=== PATIENT | female | born 2000 | race Caucasian/White ===

== ENCOUNTER 2025-07-22 09:02 | Outpatient (OUT) | payer OTHER, SELFPAY ==
--- OUTSIDE RECORDS SUMMARY | 2025-07-21 14:00 | XMS_ITS | Encounter Summary ---
Author Organization [facility] Address [address] [facility] [place] [address] Care Team Providers Care Greenhouse Technician Name Role Phone Elva Traore MD Unavailable [phone] Encounter Details DateTypeDepartmentCare Team (Latest Contact Info)Uifzilesbmh76/30/2025 2:00 PM EDTAncillary Procedure [facility]BGYN [address] [place] [address] [place] [address] Missed menses; Positive urine test ([facility]) Social History Tobacco UseTypesPacks/DayYears UsedDateSmoking Tobacco: Never Assessed CommentsUnknownSex and Gender InformationValueDate RecordedSex Assigned at Not on fileLegal HrfLsyqto45/15/2023 8:05 PM EDTGender IdentityNot on fileSexual OrientationNot on filedocumented as of this encounter Plan of Treatment Not on file documented as of this encounter Procedures Procedure NamePriorityDate/TimeAssociated DiagnosisCommentsUS OB TRANSVAGINAL Wytyyfs6807/21/2025 2:23 PM EDT Missed menses Positive urine test ([facility]) documented in this encounter Results * [...] not confirm viability. Correlate with hCG findings, JUKEBOX OPERATOR consultation at this time. TRANSCRIBED BY: ? [...] Diagnoses Diagnosis Missed menses Positive urine test ([facility]) documented in this encounter Care Teams Team MemberRelationshipSpecialtyStart DateEnd Date Elva Traore MD [address] [place] [address] PCP - External PCPFamily Medicine03/01/23documented as of this encounter
--- OUTSIDE RECORDS SUMMARY | 2025-07-21 14:30 | XMS_ITS | Encounter Summary ---
Author Organization [facility] Address [address] [facility] [place] [address] Care Team Providers Care Cage Loader Name Role Phone Elva Traore MD Unavailable [phone] Reason for Visit * ReasonCommentsmissed Encounter Details DateTypeDepartmentCare Team (Latest Contact Info)Ayjffumutmy92/30/2025 2:30 PM EDTOffice Visit [facility]BGYN [address] [facility] [place] [address] Dayanara Greer, TRI [address] [facility] [place] [address] Missed menses; Missed ([facility] Social History Tobacco UseTypesPacks/DayYears UsedDateSmoking Tobacco: Never Assessed CommentsUnknownSex and Gender InformationValueDate RecordedSex Assigned at Not on fileLegal OwuTdkkcy15/15/2023 8:05 PM EDTGender IdentityNot on fileSexual OrientationNot [...] not confirm viability. Correlate with hCG findings, FIBERLINE SUPERVISOR consultation at this time. TRANSCRIBED BY: ? [...] Stephen Shipman MD Authorizing ProviderResult TypeResult StatusCorey [facility] OB US PROCEDURES Final Result documented in this encounter Visit Diagnoses Diagnosis Missed menses Positive urine test ([facility]) Missed menses Missed ([facility]) Missed documented in this encounter Care Teams Team MemberRelationshipSpecialtyStart DateEnd Elva Traore MD [address] [place] [address] PCP - External PCPFamily Medicine03/01/23documented as of this encounter
--- OUTSIDE RECORDS SUMMARY | 2025-07-22 09:08 | XMS_ITS | Clinical Summary ---
Author Organization [employer] [facility] tem Address [id number] [address] [place] [address] Care Team Providers Care Business Intern Name Role Phone Luzmaria Elizondo MD Primary Care Provider [phone] Allergies No known active allergies Medications MedicationSigDispense QuantityRefillsLast FilledStart DateEnd DateStatus levonorgestreL-ethinyl estrad ([place]) 0.15 mg-30 mcg (91) per tablet Indications:Encounter for initial prescription of contraceptive pillsTake 1 tablet by mouth in the morning. 91 tablet ctive Active Problems ProblemNoted DateDiagnosed DateHydronephrosis with ureteropelvic junction (UPJ) qlmcdcujspp15/11/2022 Resolved Problems ProblemNoted DateDiagnosed DateResolved DatePain during labor05/09/2023 06/25/20233588Zlmhgrganfhjkku48/04/202306/11/20239962Ylwvlwzbjwp67/04/202306/11/2023 Renal calculus, right/ Overview (06/26/2022): 04/02/22: Right 5 x 5 mm uvj stone. URS 07/02/22:: Litho link demonstrating volume 1.22, other parameters normal Fmlfhwuyxqq79/11/202210/ain during labor/09/2022Intrauterine yzyvtibej31uspected COVID-19 virus rzwzwavtf48/04/2020 11/07/2021cute URI1/hest pain Encounters DateTypeDepartmentCare BngzMdhdmrusnxf61/08/2025Orders Only [facility] Obstetrics/Gynecology [address] [facility] [address] [place] [address] Wendie Aguilar RN 04/28/2025Telephone [facility] Obstetrics/Gynecology [address] [facility] [address] [place] [address] Wendie Aguilar, DILCIA from Last 3 Months Immunizations ImmunizationAdministration DatesNext DueRho (D) Immune Diuztdfc62/19/2023, 02/24/2023,01/14/2022,11/07/2021Tdap02/24/2023,11/07/2021 Family History Medical HistoryRelationNameCommentsNo Known ProblemsBrotherNo Known Problems FatherNo Known ProblemsMotherNo Known ProblemsSisterRelationNameStatusComments BrotherAliveFatherAliveMotherAliveSisterAlive Social History Tobacco UseTypesPacks/DayYears UsedDateSmoking Tobacco: NeverSmokeless Tobacco: Never Tobacco Cessation:Counseling Given: Not Answered Alcohol UseStandard Drinks/WeekCommentsNo0 (1 standard drink = 0.6 oz pure alcohol)Social Connection and Isolation PanelAnswerDate RecordedIn a typical week, how many times do you talk on the phone with family, friends, or neighbors?Twice a week11/23/2022How often do you get together with friends or relatives?Twice a week11/23/2022How often do you attend holiness or bahai services?Never11/23/2022o you belong to any clubs or organizations such as holiness groups, unions, fraternal or athletic groups, or school groups?No 11/23/2022How often do you attend meetings of the clubs or organizations you belong to?Never11/23/2022re you , , , , never , or living with a partner?Living with ywpztfh1611/23/2022UDIT-CAnswerDate RecordedQ1: How often do you have a drink containing alcohol?Never11/23/2022Q2: How many drinks containing alcohol do you have on a typical day when you are drinking?Patient does not drink11/23/2022Q3: How often do you have six or more drinks on one occasion?Never11/23/2022Overall Financial Resource Strain (CARDIA) AnswerDate RecordedHow hard is it for you to pay for the very basics like food, housing, medical care, and heating?Not hard at all11/23/2022HQ-2AnswerDate RecordedTotal Rwixs958[facility] [place] of Occupational Health - Occupational Stress QuestionnaireAnswerDate RecordedDo you feel stress - tense, restless, nervous, or anxious, or unable to sleep at night because yourmind is troubled all the time - these days?Only a dbfgfg6011/23/2022Exercise Vital Sign AnswerDate RecordedOn average, how many days per week do you engage in moderate to strenuous exercise (like a brisk walk)?3 days11/23/2022On average, how many minutes do you engage in exercise at this level?20 min11/23/2022RAPARE - TransportationAnswerDate RecordedIn the past 12 months, has lack of transportation kept you from medical appointments or from getting medications?No 11/23/2022In the past 12 months, has lack of transportation kept you from meetings, work, or from getting things needed for daily living?No11/23/2022 Housing InstabilityAnswerDate RecordedAre you worried or concerned that in the next two months you may not have stable housing that you own, rent or stay in as a part of a household?No11/23/2022hildcareAnswerDate RecordedDo problems getting child care associate teacher make it difficult for you to work or study?No11/23/2022 EmploymentAnswerDate RecordedDo you need help finding a local career center and/or a training program?No11/23/2022Hunger ScreeningAnswerDate RecordedWithin the past 12 months we worried whether our food would run out before we got money to buy more.Never True06/25/2023Within the past 12 months the food we bought just didn't last and we didn't have money to get more.Never True06/25/2023 Purpose - LifeAnswerDate RecordedI have a purpose and direction in my life. Strongly Agree11/23/2022CommentsNoSex and Gender InformationValueDate RecordedSex Assigned at BirthNot on fileLegal TsyIevrtp50/06/2015 11:54 AM EDT Gender IdentityNot on fileSexual OrientationNot on file Last Filed Vital Signs Vital SignReadingTime TakenCommentsBlood Lsdfwtki935/78002/23/2024 9:01 AM EDT Ivzsw9767 2:54 PM LZNWrldiueolaj83.5 ??C (97.7 ??F)05/10/2023 2:41 PM EDTRespiratory Vbfd803005/10/2023 2:41 PM EDTOxygen Nwvzmsvqdt71%11/24/2022 8:34 AM ESTInhaled Oxygen Concentration--Aikjii38.5 kg (126 lb 12.8 oz)02/23/2024 9:01 AM WZPJoriqg691.5 cm (5' 2 )02/23/2024 9:01 AM EDTBody Mass Index23.19 02/23/2024 9:01 AM EDT Plan of Treatment DateTypeDepartmentCare Team (Latest Contact Info)Lgfqoyqwelu56/06/2026 1:50 PM ESTOffice Visit [facility] Obstetrics/Gynecology [address] [place] [address] [place] [address] Nilo Call MD [address] [place] [address], [address] [place] [address] Health MaintenanceDue DateLast DoneCommentsDepression Ilhwhzaea50/04/2024 11/23/2022dult BMI Mfrpseoua97Tobacco Gaivcfacf76/03/2025 02/23/2024ap Smear/05/2022, 05/21/2018Influenza Srxmoln9705/23/2025 06/30/2009, 10/05/2003, 08/31/2003DTaP,Tdap and Td Vaccines (10 - Td or Tdap) /01/2023, 11/07/2021, 09/05/2017, Additional history exists Medical Devices Not on file Procedures Procedure NamePriorityDate/TimeAssociated DiagnosisCommentsPAP SMEARRoutine 02/28/2022 10:24 AM EDT exam from Last 3 Months or Most Recently Relevant to Health Maintenance Results * Pap Smear (02/28/2022 10:24 AM EDT)Specimen (Source)Anatomical Location / LateralityCollection Method / VolumeCollection TimeReceived Time02/28/2022 10:24 AM EDT02/28/2022 10:24 AM EDT Narrative COPATH - 03/06/2022 2:22 PM EDT [facility] ? [address] [place] [address] ? [place] [address] ? Gynecologic Cytology Consultation ? Patient Name:LORENA GOTTI:2000 (Age: 21)Gender:FTaken:02/28/2022eported:03/06/2022hysician(s):Nilo Perez M.D. ([phone])Copy To: Rec. #:[id number]: #[id number] Final Cytologic Interpretation ThinPrep Pap Test (Cervical): Satisfactory for evaluation. A transformation zone component is present. NEGATIVE FOR INTRAEPITHELIAL LESION OR MALIGNANCY. ?? [facility] [place]03/06/2022 Interpretation performed at [facility], [address] [place] [address], License number: [id number]. Electronically Signed Out By ?HALEY Almeida(ASCP) Date of Last Menstrual Period: ? (None Given) Other Clinical Conditions: Post Z39.2 Post Source of Specimen ??ThinPrep Pap Test (Cervical) ? Thin Prep Pap (COMPUTING TUTOR) Fee Code(s): ?? G0145 Authorizing ProviderResult TypeResult StatusAlexis Patricia Perez MD PATHOLOGY/CYTOLOGY ORDERABLESFinal ResultPerforming OrganizationAddress City/State/ZIP CodePhone Number COPATH from Last 3 Months or Most Recently Relevant to Health Maintenance Insurance [address] [place] [address] Advance Directives * Full Code (Latest Code Status on File) Date ActivatedDate InactivatedComments05/09/2023 8:49 AM05/10/2023 6:36 PM * Full Code Date ActivatedDate InactivatedComments11/23/2022 10:14 AM11/24/2022 5:20 PM * Full Code Date ActivatedDate InactivatedComments04/01/2022 11:09 PM04/02/2022 4:45 PM * Full Code Date ActivatedDate InactivatedComments01/13/2022 7:59 AM01/15/2022 8:16 PM Care Teams Team MemberRelationshipSpecialtyStart DateEnd Date Luzmaria Elizondo MD [address] [place] [address] PCP - GeneralFamily Medicine01/23/21
--- OUTSIDE RECORDS SUMMARY | 2025-07-22 09:09 | XMS_ITS | Patient Health Record ---
Author Organization [facility] in [place] Address [address] [place] [address] Support Name Relationship Address Phone Lorena Gotti Guarantor Unknown Reason For Referral No Information Medications Medication SIG (Take, Route, Frequency, Duration) Notes Start Date End Date Status Sprintec 28 0.25-35 MG-MCG TAKE 1 TABLET BY MOUTH DAILY FOR 28 DAYS; Duration: 84 Active Immunizations Vaccine Route Administration Date Status Comme nts DTaP Unknown 1998 Pending 1998 DTaP Unknown 1998 Pending 1998 DTaP Unknown 02/05/1999 Pending 05 Feb 1999 DTaP Unknown 10/24/1999 Pending 24 Oct 1999 DTaP Unknown 11/18/2003 Pending 18 Nov 2003 Flu, (67220) -historic- Split, Prsrvtve Free, for Intradermal use Intramuscular 06/30/2009 Pending [id number] 03:23P M Hep B, Adult, 3 Dose Unknown Pending 15ma 1998 Hep B, Adult, 3 Dose Unknown 1998 Pending 02 A ug 1997 Hep B, Adult, 3 Dose Unknown 1998 Pending 09 D ec 1997 HIB, 4 dose schedule Unknown 1998 Pending 09 D ec 1997 HIB, 4 dose schedule Unknown 1998 Pending 15 M ar 1998 HIB, 4 dose schedule Unknown 02/05/1999 Pending 17 M ay 1998 HIB, 4 dose schedule Unknown 10/24/1999 Pending 02 F eb 1999 HPV (Gardasil) Intramuscular 06/30/2009 Pending [id number] 09 03:25PM HPV (Gardasil) Intramuscular 08/30/2009 Pending 62Smk06 09 09:18AM HPV (Gardasil) Intramuscular 12/29/2009 Pending [id number] 10 09:30AM Meningococcal (Menactra) Intramuscular 03/05/2011 Pending 03Wbn1621 03:36PM MMR Unknown 04/26/1999 Pending 26 Apr 1999 MMR Unknown 11/18/2003 Pending 18 Nov 2003 Polio Virus, IPV Unknown 1998 Pending Aug 22 998 Polio Virus, IPV Unknown 1998 Pending Nov 20 999 Polio Virus, IPV Unknown 04/26/1999 Pending Apr 22 999 Polio Virus, IPV Unknown 11/18/2003 Pending Oct 2 004 Tdap Intramuscular 05/28/2011 Pending [id number] 0 9:40AM Varicella Unknown 04/26/1999 Pending 26 Apr 1999 Plan Of Treatment No Information
--- OUTSIDE RECORDS SUMMARY | 2025-07-22 09:09 | XMS_ITS | Clinical Summary ---
Author Organization [facility] Address [address] [place] [address] Care Team Providers Care Molding Associate Name Role Phone Elva Traore MD Unavailable [phone] Allergies No known active allergies Medications MedicationSigDispense QuantityRefillsLast FilledStart DateEnd DateStatus albuterol HFA 90 mcg/act inhaler every 4 (four) hoursActive Encounters DateTypeDepartmentCare GynwDkzcxgvofry88/30/2025 2:30 PM EDTOffice Visit [facility] [address] [place] [address] [place] [address] Dayanara Greer NP Missed menses; Missed ([facility])07/21/2025 2:00 PM EDTAncillary Procedure [facility] [address] [place] [address] [place] [address] Missed menses; Positive urine test ([facility])07/21/2025Telephone [facility] [address] [place] [address] [place] [address] Sydni Zhang MA from Last 3 Months Social History Tobacco UseTypesPacks/DayYears UsedDateSmoking Tobacco: Never Assessed CommentsUnknownSex and Gender InformationValueDate RecordedSex Assigned at Not on fileLegal FomVnyuaf66/15/2023 8:05 PM EDTGender IdentityNot on fileSexual OrientationNot on file Last Filed Vital Signs Vital SignReadingTime TakenCommentsBlood Khmghevg679/7011 12:00 PM EST Pulse--Temperature--Respiratory Rate--Oxygen Saturation--Inhaled Oxygen Concentration--Srjegj30.5 kg (140 lb)08/19/2018 12:00 PM FFQOmrufv999.6 cm (5' 4 )08/19/2018 12:00 PM ESTBody Mass Index24.03110/19/2017 12:00 PM EST Plan of Treatment Not on file Procedures Procedure NamePriorityDate/TimeAssociated DiagnosisCommentsUS OB TRANSVAGINAL Ckxqtra3107/21/2025 2:23 PM EDT Missed menses Positive urine test ([facility]) from Last 3 Months Results * US OB transvaginal (07/21/2025 2:23 PM EDT)Anatomical RegionLateralityModality BodyUltrasoundSpecimen (Source)Anatomical Location / LateralityCollection Method / VolumeCollection TimeReceived Time07/21/2025 2:53 PM EDT Impressions 07/21/2025 3:22 PM EDT Single intrauterine gestational sac with pole, age of which suggests an 8 week and 0 day gestational age, however absence of cardiac activity does not confirm viability. Correlate with hCG findings, TRACK HELPER consultation at this time. TRANSCRIBED BY: ? [...] Shipman MD Authorizing ProviderResult TypeResult StatusCorey Bari MACEMG OB US PROCEDURES Final Result from Last 3 Months Insurance Care Teams Team MemberRelationshipSpecialtyStart DateEnd Date Elva Traore MD [address] [place] [phone] PCP - External PCPFamily [facility]03/01/23
--- OUTSIDE RECORDS SUMMARY | 2025-07-22 09:09 | XMS_ITS | Patient Health Record ---
Author Organization [facility] vices Address [address], [place] [id number] Support Name Relationship Address Phone Shen Rosangela Emergency Contact [address] [place] [address] Lorena Gotti Guarantor Unknown Allergies No Known Allergies Reason For Referral No Information Medications Medication SIG (Take, Route, Frequency, Duration) Notes Start Date End Date Status Amoxicillin 500 MG 1 tablet Orally Three times a day; Duration: 5 day(s) 12/26/2022UnknownAmoxicillin-Pot Clavulanate 500-125 MG1 tablet Orally every 8 hrs; Duration: 7 day(s)01/03/2023ctive Social History Tobacco Use: Social History Observation Description Date Details (start date - stop date) Never Smoker NA - NA Sex Assigned At : Social History Observation Description Sex Assigned At Female Household Question Answer Notes Number of adults in household: 1 Number of children in household:4Tobacco Use/Smoking Question Answer Notes Tobacco use: nonsmoker Problems Problem Type SNOMED Code ICD Code Onset Dates Problem Status W/U Status Risk Notes Problem Irregular periods (15762933) Irregular pe riods (N92.6) ActiveconfirmedComment:Strongly advised to take a test , she does have history of unprotected sexual intercourse,ProblemEncounter for supervision of low-risk (Z34.90)Activeconfirmed Comment:1. Dated by 6wk US 2. labs ordered today. 3. Nausea/vomiting: bonjesta, added reglan PRN 4. Aneuploidy screening options reviewed. Opted for cell free DNA, order next visit 5. Declines COVID vaccination. 6. RTC 4wks routine .,Description:Supervision of low-risk ProblemDepression screening (937462451)Screening for depression (Z13.31)Active confirmedDescription:Depression screenProblemContraception care management (313000248)Contraception management (Z30.9)ActiveconfirmedProblemUpper respiratory infection (87302153)URI (upper respiratory infection) (J06.9)Active confirmed Comment:Discussed with patient at length No signs of bacterial infection Counselled on lifestyle modifications including diet and exercise. Also, discussed with patient to increase hydration Again, encourage to get vaccinated. PVU., ProblemBacterial vaginosis (disorder) (276479359)BV (bacterial vaginosis) (N76.0)ActiveconfirmedProblemWell female adult (710775263)Well woman exam (Z01.419)ActiveconfirmedComment:Discussed with patient at length - she is ready to get . She understands the risks without being on any control and not using any condoms, and not considering any other contraception. Currently, she has only one male partner. Also, denied breast examination today.,ProblemBacterial vaginosis (473893727)Bacterial vaginosis (N76.0)Active confirmed Comment:Discussed with patient - it seems to be resolving already. We will wait to see how things are in next few days. Also, she was strongly adviced to check for status - she will check this once she getss home. It does not sound like cervicitis - but she does understand the limitation of this assessment without any physical examination., ProblemSupervision of low-risk (Z34.90)Activeconfirmed Comment:1. Dated by 6wk US 2. Rh neg, Hgb 13.9 3. Nausea/vomiting: Resolved. No longer taking medication 4. NIPS normal. Male infant. Declines CF/SMA testing 5. Declines COVID vaccination. Considering flu vaccine. 6. RTC 4wks routine . Referral sent for anatomic survey. 7. Moved to [place] and will be transferring care there., ProblemAcute sinusitis (46006897)Acute sinusitis (J01.90)Activeconfirmed Comment:see patient message,ProblemNausea and vomiting in (1200070016) Nausea and vomiting in (O21.9)ActiveconfirmedProblemIrregular menstruation (90484428)Menstrual abnormality (N92.6)ActiveconfirmedComment:She has had extensive work up with [employer] - No concern. We will continue to monitor., ProblemEarly stage of (finding) (671992391) at early stage (Z34.90)ActiveconfirmedComment:1. RTC for ob intake appt after US.,Problem Headache (65175937)Headache (R51.9)ActiveconfirmedComment:Discussed with patient at length - patient tried only 50 mg for the last episode - which did not help a lot. Discuss with patient to take another one 2 hours later if needed. Patient voices understanding. Continue to keep a headache diary. PVU. No red flag concerns.,ProblemVomiting of (59913584)Nausea/vomiting in (O21.9)ActiveconfirmedProblemCandidiasis (50078993)Yeast infection (B37.9)Active confirmedProblemHistory of infectious disease (026301905)History of chlamydia (Z86.19)ActiveconfirmedComment:Negative STD panel including negative HIV screening - discussed with patient in person. PVU.,ProblemHistory and physical examination, sports participation (185130709)Sports physical (Z02.5)Active confirmed Comment:-pt UTD with immunizations, no known medical condition or on prescribed medications -PE is with in normal limits -cw healthy diet and physical exercises -f/u as needed, ProblemLumbar pain (615017394)Lumbar pain (M54.50)Activeconfirmed Comment:Likely strain that appears resolving. CT reported negative. Discuss with strainer mill operator at [facility] to obtain exercises or stretches to begin., Plan Of Treatment No Information Insurance Providers Payer Name Payer Address Payer Phone Subscriber Number Group Number Insured Name Patient Relationship to Insured Coverage Start Date Coverage End Date [facility] [address] [place] [address] [phone] [id number] Lorena Gotti Self - patient is the insured 3 Medicaid [facility] after [address]them[address] [place], [place] [id number], Shylee Self - patient is the [id number] 2022 Medical (General) History Medical History History ICD Code Bacterial vaginosis, Contraception managementCOVID-19 vaccination declinedHeadacheLumbar pain Supervision of low-risk pregnancySurgical History Surgery Date(Month/Year)
--- OUTSIDE RECORDS SUMMARY | 2025-07-22 09:09 | XMS_ITS | Encounter Summary ---
Author Organization [facility] Address [address] [place] [address] Care Team Providers Care Night Time Babysitter Name Role Phone Elva Traore MD Unavailable [phone] Encounter Details DateTypeDepartmentCare Team (Latest Contact Info)Eleatxdtqfx09/30/2025Telephone [facility] [address] [place] [address] [place] [address] Sydni Zhang MA Social History Tobacco UseTypesPacks/DayYears UsedDateSmoking Tobacco: Never Assessed CommentsUnknownSex and Gender InformationValueDate RecordedSex Assigned at Not on fileLegal RnhGjlwoz96/15/2023 8:05 PM EDTGender IdentityNot on fileSexual OrientationNot on filedocumented as of this encounter Miscellaneous Notes * Telephone Encounter - Sydni Zhang MA - 07/21/2025 2:52 PM EDT Per joann order serial hCG's to have drawn weekly until level is below 5 documented in this encounter Plan of Treatment NameTypePriorityAssociated DiagnosesOrder SchedulehCG, quantitative, LabRoutine Positive urine test ([facility]) Expected: 07/21/2025 (Approximate), Expires: 01/19/2026documented as of this encounter Visit Diagnoses Diagnosis Positive urine test ([facility]) documented in this encounter Care Teams Team MemberRelationshipSpecialtyStart DateEnd Date Elva Traore MD [address] [place] [phone] PCP - External PCPFamily Medicine03/01/23documented as of this encounter
== END 2025-07-22 09:03 | disposition home or self-care (01) ==
LOC: PST 09:04
PROVIDERS: Visit Provider Obstetrics & Gynecology
DX: Z01.812 Encounter for preprocedural laboratory examination (principal); O02.1 Missed abortion
CPT/HCPCS: 36415; 86850; 86900; 86901

== ENCOUNTER 2025-07-25 06:49 | Day surgery (SDC) | payer OTHER, SELFPAY ==
--- OUTSIDE RECORDS SUMMARY | 2025-07-21 13:00 | XMS_ITS | Encounter Summary ---
Author Organization [facility] Address [address] [facility] [place] [address] Care Team Providers Care Vegetable Farmer Name Role Phone Elva Traore MD Unavailable [phone] Encounter Details DateTypeDepartmentCare Team (Latest Contact Info)Fywclgvnyjb65/30/2025 2:00 PM EDTAncillary Procedure [facility]i OBGYN [address] [place] [address] [place] [address] Missed menses; Positive urine test ([facility]) Social History Tobacco UseTypesPacks/DayYears UsedDateSmoking Tobacco: Never Assessed CommentsUnknownSex and Gender InformationValueDate RecordedSex Assigned at Not on fileLegal YhdIavekc88/15/2023 8:05 PM EDTGender IdentityNot on fileSexual OrientationNot on filedocumented as of this encounter Plan of Treatment Not on file documented as of this encounter Procedures Procedure NamePriorityDate/TimeAssociated DiagnosisCommentsUS OB TRANSVAGINAL Umzmjeg1107/21/2025 2:23 PM EDT Missed menses Positive urine test ([facility]) documented in this encounter Results * US OB transvaginal (07/21/2025 2:23 PM EDT)Anatomical RegionLateralityModality BodyUltrasoundSpecimen (Source)Anatomical Location / LateralityCollection Method / VolumeCollection TimeReceived Time07/21/2025 2:53 PM EDT Impressions 07/21/2025 3:22 PM EDT Single intrauterine gestational sac with pole, age of which suggests an 8 week and 0 day gestational age, however absence of cardiac activity does not confirm viability. Correlate with hCG findings, ENGINEER DESIGN AND CONSTRUCTION consultation at this time. TRANSCRIBED BY: ? [...] Shipman MD Authorizing ProviderResult TypeResult StatusCorey Bari DOIMG OB US PROCEDURES Final Result documented in this encounter Visit Diagnoses Diagnosis Missed menses Positive urine test ([facility]) documented in this encounter Care Teams Team MemberRelationshipSpecialtyStart DateEnd Date Elva Traore MD [address] [place] [address] PCP - External PCPFamily Medicine03/01/23documented as of this encounter
--- OUTSIDE RECORDS SUMMARY | 2025-07-21 13:30 | XMS_ITS | Encounter Summary ---
Author Organization [facility] Address [address] [facility] [place] [address] Care Team Providers Care Heavy Media Operator Name Role Phone Elva Traore MD Unavailable [phone] Reason for Visit * ReasonCommentsmissed Encounter Details DateTypeDepartmentCare Team (Latest Contact Info)Jmezjqpfoze95/30/2025 2:30 PM EDTOffice Visit [facility]BGYN [address] [facility] [place] [address] Dayanara Greer, TRI [address] [facility] [place] [address] Missed menses; Missed ([facility]) Social History Tobacco UseTypesPacks/DayYears UsedDateSmoking Tobacco: Never Assessed CommentsUnknownSex and Gender InformationValueDate RecordedSex Assigned at Not on fileLegal HuoStpxmo84/15/2023 8:05 PM EDTGender IdentityNot on fileSexual OrientationNot on filedocumented as of this encounter Plan of Treatment Not on file documented as of this encounter Results * US OB transvaginal (07/21/2025 2:23 PM EDT)Anatomical RegionLateralityModality BodyUltrasoundSpecimen (Source)Anatomical Location / LateralityCollection Method / VolumeCollection TimeReceived Time07/21/2025 2:53 PM EDT Impressions 07/21/2025 3:22 PM EDT Single intrauterine gestational sac with pole, age of which suggests an 8 week and 0 day gestational age, however absence of cardiac activity does not confirm viability. Correlate with hCG findings, CAMP DIRECTOR consultation at this time. TRANSCRIBED BY: ? [...] Stephen Shipman MD Authorizing ProviderResult TypeResult StatusCorey [facility] OB US PROCEDURES Final Result documented in this encounter Visit Diagnoses Diagnosis Missed menses Positive urine test ([facility]) Missed menses Missed ([facility]) Missed documented in this encounter Care Teams Team MemberRelationshipSpecialtyStart DateEnd Elva Traore MD [address] [place] [address] PCP - External PCPFamily Medicine03/01/23documented as of this encounter
[2025-07-22 09:40] VITALS: BP 117/70; PULSE 62; TEMP 35.6; O2SAT 95; BMI 24.0
--- OUTSIDE RECORDS SUMMARY | 2025-07-25 06:52 | XMS_ITS | Encounter Summary ---
Author Organization [facility] Address [address] [place] [address] Care Team Providers Care Measurement Superintendent Name Role Phone Elva Traore MD Unavailable [phone] Encounter Details DateTypeDepartmentCare Team (Latest Contact Info)Nlphryfzhrv38/31/2025linisync Result Encounter [facility] External Department Unsolicited Eusebio Candelaria, DO [address] [place] [address] Social History Tobacco UseTypesPacks/DayYears UsedDateSmoking Tobacco: Never Assessed CommentsUnknownSex and Gender InformationValueDate RecordedSex Assigned at Not on fileLegal SrqDdrjuc36/15/2023 8:05 PM EDTGender IdentityNot on fileSexual OrientationNot on filedocumented as of this encounter Plan of Treatment Not on file documented as of this encounter Procedures Procedure NamePriorityDate/TimeAssociated DiagnosisCommentsALL TYPE AND SCREEN Oupdufn7907/22/2025 9:51 AM EDT documented in this encounter Results * ALL TYPE AND SCREEN (07/22/2025 9:51 AM EDT)ComponentValueRef RangeTest Method Analysis TimePerformed AtPathologist SignatureBLOOD TYPEA NegativeTBHANTIBODY SCREENNEGATIVETBHSpecimen (Source)Anatomical Location / LateralityCollection Method / VolumeCollection TimeReceived Time07/22/2025 9:51 AM EDT1 9:52 AM EDT Narrative [facility] - 07/22/2025 10:47 AM EDT [facility] , ?? Authorizing ProviderResult TypeResult StatusCorey Bari DOCLINISYNCFinal Result Performing OrganizationAddressCity/State/ZIP CodePhone Number [facility] documented in this encounter Visit Diagnoses Not on filedocumented in this encounter Care Teams Team MemberRelationshipSpecialtyStart DateEnd Date Elva Traore MD [address] [place] [phone] PCP - External PCPFamily Medicine03/01/23documented as of this encounter
--- OUTSIDE RECORDS SUMMARY | 2025-07-25 06:52 | XMS_ITS | Clinical Summary ---
Author Organization [facility] tem Address [id number] [address] [place] [address] Care Team Providers Care Partition Notcher Name Role Phone Luzmaria Elizondo MD Primary Care Provider [phone] Allergies No known active allergies Medications MedicationSigDispense QuantityRefillsLast FilledStart DateEnd DateStatus levonorgestreL-ethinyl estrad ([place]) 0.15 mg-30 mcg (91) per tablet Indications:Encounter for initial prescription of contraceptive pillsTake 1 tablet by mouth in the morning. 91 tablet ctive Active Problems ProblemNoted DateDiagnosed DateHydronephrosis with ureteropelvic junction (UPJ) qlkivprqeqt15/11/2022 Resolved Problems ProblemNoted DateDiagnosed DateResolved DatePain during labor05/09/2023 06/25/20239984Svpplbhuupnnqka32/04/202306/11/20236860Mxnulsdjmku31/04/202306/11/2023 Renal calculus, right/ Overview (06/26/2022): 04/02/22: Right 5 x 5 mm uvj stone. URS 07/02/22:: Litho link demonstrating volume 1.22, other parameters normal Wxtbbmmlxkt20/11/202210/ain during labor/09/2022Intrauterine jrskkvvep75uspected COVID-19 virus oaxtwovgb57/04/2020 11/07/2021cute URI1/hest pain Encounters DateTypeDepartmentCare NgtlPjgsyrwtock96/08/2025Orders Only [facility] Obstetrics/Gynecology [address] [place] [phone] Wendie Aguilar RN 04/28/2025Telephone [facility] Obstetrics/Gynecology [address] [place] [phone] Wendie Aguilar, DILCIA from Last 3 Months Immunizations ImmunizationAdministration DatesNext DueRho (D) Immune Snuojjon99/19/2023, 02/24/2023,01/14/2022,11/07/2021Tdap02/24/2023,11/07/2021 Family History Medical HistoryRelationNameCommentsNo Known ProblemsBrotherNo [...] relatives?Twice a week11/23/2022How often do you attend scientologist or spiritism services?Never11/23/2022o you belong to any clubs or organizations such as scientologist groups, unions, fraternal or athletic groups, or school groups?No 11/23/2022How often do you attend meetings of the clubs or organizations you belong to?Never11/23/2022re you , , , , never , or living with a partner?Living with xeznmnm4911/23/2022UDIT-CAnswerDate RecordedQ1: How often do you have a [...] care, and heating?Not hard at all11/23/2022HQ-2AnswerDate RecordedTotal Vxsgr431Finlakeview hospital [place] of Occupational [facility] - Occupational Stress QuestionnaireAnswerDate RecordedDo you feel stress - tense, restless, nervous, or anxious, or unable to sleep at night because yourmind is troubled all the time - these days?Only a azhpdc3511/23/2022Exercise Vital Sign AnswerDate RecordedOn average, how many [...] part of a household?No11/23/2022hildcareAnswerDate RecordedDo problems getting 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 work [...] InformationValueDate RecordedSex Assigned at BirthNot on fileLegal LunFycapi20/06/2015 11:54 AM EDT Gender IdentityNot on fileSexual OrientationNot on file Last Filed Vital Signs Vital SignReadingTime TakenCommentsBlood Sybszjto813/78002/23/2024 9:01 AM EDT Ugheq2402 2:54 PM XFFCquworkxntn72.5 ??C (97.7 ??F)05/10/2023 2:41 PM EDTRespiratory Fjqh726805/10/2023 2:41 PM EDTOxygen Iyphamcext22%11/24/2022 8:34 AM ESTInhaled Oxygen Concentration--Tfxqhf44.5 kg (126 lb 12.8 oz)02/23/2024 9:01 AM JNJVztdep654.5 cm (5' 2 )02/23/2024 9:01 AM EDTBody Mass Index23.19 02/23/2024 9:01 AM EDT Plan of Treatment DateTypeDepartmentCare Team (Latest Contact Info)Ngiyszkhuis02/06/2026 1:50 PM ESTOffice Visit [facility] Obstetrics/Gynecology [address] [place] [address] [place] [phone] Nilo Call MD [address] [place] [address], [address] [place] [address] Health MaintenanceDue DateLast DoneCommentsDepression Canrqikas37/04/2024 11/23/2022dult BMI Hfohfmbiy86Tobacco Tgdoxwhim41/03/2025 02/23/2024ap Smear/05/2022, 05/21/2018Influenza Bezzozm4005/23/2025 06/30/2009, 10/05/2003, 08/31/2003DTaP,Tdap and Td Vaccines (10 [...] Narrative COPATH - 03/06/2022 2:22 PM EDT [facility] ? [address] [place] [address] ? [place] [address] ? Gynecologic Cytology Consultation ? Patient Name:LORENA GOTTI:2000 (Age: 21)Gender:FTaken:02/28/2022eported:03/06/2022hysician(s):Nilo Perez M.D. ([phone])Copy To: Rec. #:[id number]: #[id number] Final Cytologic Interpretation ThinPrep Pap Test (Cervical): Satisfactory for evaluation. A transformation zone component is present. NEGATIVE FOR INTRAEPITHELIAL LESION OR MALIGNANCY. ?? [facility] [place]2022 Interpretation performed at [facility], [address] [place] [address], License number: [id number]. Electronically Signed Out By ?HALEY Almeida(ASCP) Date of Last Menstrual Period: ? (None Given) Other Clinical Conditions: Post Z39.2 Post Source of Specimen ??ThinPrep Pap Test (Cervical) ? Thin Prep Pap (SOLIDS CONTROL TECHNICIAN) Fee Code(s): ?? G0145 Authorizing ProviderResult TypeResult StatusAlexis Patricia Perez MD PATHOLOGY/CYTOLOGY ORDERABLESFinal ResultPerforming OrganizationAddress City/State/ZIP CodePhone Number COPATH from Last 3 Months or Most Recently Relevant to Health Maintenance Insurance [address] [place] [address] Advance Directives * Full Code (Latest Code Status on File) Date ActivatedDate InactivatedComments05/09/2023 8:49 AM05/10/2023 6:36 PM * Full Code Date ActivatedDate InactivatedComments11/23/2022 10:14 AM11/24/2022 5:20 PM * Full Code Date ActivatedDate InactivatedComments04/01/2022 11:09 PM04/02/2022 4:45 PM * Full Code Date ActivatedDate InactivatedComments01/13/2022 7:59 AM01/15/2022 8:16 PM Care Teams Team MemberRelationshipSpecialtyStart DateEnd Date Luzmaria Elizondo MD [address] [place] [address] PCP - GeneralFamily Medicine01/23/21
--- OUTSIDE RECORDS SUMMARY | 2025-07-25 06:53 | XMS_ITS | Encounter Summary ---
Author Organization [facility] Address [address] [place] [address] Care Team Providers Care Wine Bottle Inspector Name Role Phone Elva Traore MD Unavailable [phone] Encounter Details DateTypeDepartmentCare Team (Latest Contact Info)Vucznypngra12/30/2025Telephone [facility] [address] [place] [address] [place] [address] Sydni Zhang MA Social History Tobacco UseTypesPacks/DayYears UsedDateSmoking Tobacco: Never Assessed CommentsUnknownSex and Gender InformationValueDate RecordedSex Assigned at Not on fileLegal QyrApduoi31/15/2023 8:05 PM EDTGender IdentityNot on fileSexual OrientationNot on filedocumented as of this encounter Miscellaneous Notes * Telephone Encounter - Sydni Zhang MA - 07/21/2025 2:52 PM EDT Per joann order serial hCG's to have drawn weekly until level is below 5 documented in this encounter Plan of Treatment NameTypePriorityAssociated DiagnosesOrder SchedulehCG, quantitative, LabRoutine Positive urine test ([facility]) Expected: 07/21/2025 (Approximate), Expires: 01/19/2026documented as of this encounter Visit Diagnoses Diagnosis Positive urine test ([facility]) documented in this encounter Care Teams Team MemberRelationshipSpecialtyStart DateEnd Date Elva Traore MD [address] [place] [phone] PCP - External PCPFamily Medicine03/01/23documented as of this encounter
--- OUTSIDE RECORDS SUMMARY | 2025-07-25 06:53 | XMS_ITS | Patient Health Record ---
Author Organization [facility] vices Address [address] [facility] [place] [address] Support Name Relationship Address Phone Shen Rosangela Emergency Contact [address] [place] [address] Lorena Gotti Guarantor Unknown [phone] Allergies No Known Allergies Reason For Referral [...] W/U Status Risk Notes Problem Irregular periods (97247398) Irregular pe riods (N92.6) ActiveconfirmedComment:Strongly advised to [...] 4wks routine .,Description:Supervision of low-risk ProblemDepression screening (582701363)Screening for depression (Z13.31)Active confirmedDescription:Depression screenProblemContraception care management (132686324)Contraception management (Z30.9)ActiveconfirmedProblemUpper respiratory infection (92319016)URI (upper respiratory infection) (J06.9)Active confirmed Comment:Discussed with patient at length No signs of bacterial infection Counselled on lifestyle modifications including diet and exercise. Also, discussed with patient to increase hydration Again, encourage to get vaccinated. PVU., ProblemBacterial vaginosis (disorder) (041223811)BV (bacterial vaginosis) (N76.0)ActiveconfirmedProblemWell female adult (274284642)Well woman exam (Z01.419)ActiveconfirmedComment:Discussed with patient at length - she is ready to get . She understands the risks without being on any control and not using any condoms, and not considering any other contraception. Currently, she has only one male partner. Also, denied breast examination today.,ProblemBacterial vaginosis (906531514)Bacterial vaginosis (N76.0)Active confirmed Comment:Discussed with patient - [...] sent for anatomic survey. 7. Moved to [place] and will be transferring care there., ProblemAcute sinusitis (45286681)Acute sinusitis (J01.90)Activeconfirmed Comment:see patient message,ProblemNausea and vomiting in (9445344594) Nausea and vomiting in (O21.9)ActiveconfirmedProblemIrregular menstruation (04176994)Menstrual abnormality (N92.6)ActiveconfirmedComment:She has had extensive work up with [employer] - No concern. We will continue to monitor., ProblemEarly stage of (finding) (568435330) at early stage (Z34.90)ActiveconfirmedComment:1. RTC for ob intake appt after US.,Problem Headache (27009884)Headache (R51.9)ActiveconfirmedComment:Discussed with patient at length - patient tried only 50 mg for the last episode - which did not help a lot. Discuss with patient to take another one 2 hours later if needed. Patient voices understanding. Continue to keep a headache diary. PVU. No red flag concerns.,ProblemVomiting of (18942659)Nausea/vomiting in (O21.9)ActiveconfirmedProblemCandidiasis (66937978)Yeast infection (B37.9)Active confirmedProblemHistory of infectious disease (657325834)History of chlamydia (Z86.19)ActiveconfirmedComment:Negative STD panel including negative HIV screening - discussed with patient in person. PVU.,ProblemHistory and physical examination, sports participation (122982111)Sports physical (Z02.5)Active confirmed Comment:-pt UTD with immunizations, no known medical condition or on prescribed medications -PE is with in normal limits -cw healthy diet and physical exercises -f/u as needed, ProblemLumbar pain (279049269)Lumbar pain (M54.50)Activeconfirmed Comment:Likely strain that appears resolving. CT reported negative. Discuss with guide dog trainer at [facility] to obtain exercises or stretches to begin., Plan Of Treatment No Information Insurance Providers Payer Name Payer Address Payer Phone Subscriber Number Group Number Insured Name Patient Relationship to Insured Coverage Start Date Coverage End Date [facility] [address] [place] [address] [id number] Lorena Gotti Self - patient is the insured 3 Medicaid [facility] after Anthem[address] [place], [place] [id number], Shylee Self - patient is the [id number] 2022 Medical (General) History Medical History History ICD Code Bacterial vaginosis, Contraception managementCOVID-19 vaccination declinedHeadacheLumbar pain Supervision of low-risk pregnancySurgical History Surgery Date(Month/Year)
--- OUTSIDE RECORDS SUMMARY | 2025-07-25 06:53 | XMS_ITS | Clinical Summary ---
Author Organization [facility] Address [address] [facility] [place] [address] Care Team Providers Care Hemp Fiber Taker Off Name Role Phone Elva Traore MD Unavailable [phone] Allergies No known active allergies Medications MedicationSigDispense QuantityRefillsLast FilledStart DateEnd DateStatus albuterol HFA 90 mcg/act inhaler every 4 (four) hoursActive Encounters DateTypeDepartmentCare CtrhKlnwhoignin78/31/2025linisync Result Encounter NOMS External Department Unsolicited Eusebio Candelaria DO 07/21/2025 2:30 PM EDTOffice Visit [facility] Rosi [facility] [address] [place] [address] [place] [address] Dayanara Greer NP Missed menses; Missed ([facility])07/21/2025 2:00 PM EDTAncillary Procedure [facility] Rosi CRIS[facility]OM[facility] [address] [place] [address] [place] [address] Missed menses; Positive urine test ([facility])07/21/2025Telephone [facility] Ros[facility] CR[facility] [address] [place] [address] [place] [address] Sydni Zhang MA from Last 3 Months Social History Tobacco UseTypesPacks/DayYears UsedDateSmoking Tobacco: Never Assessed CommentsUnknownSex and Gender InformationValueDate RecordedSex Assigned at Not on fileLegal RvlGlqdjn04/15/2023 8:05 PM EDTGender IdentityNot on fileSexual OrientationNot on file Last Filed Vital Signs Vital SignReadingTime TakenCommentsBlood Ijjyozec765/7008/19/2018 12:00 PM EST Pulse--Temperature--Respiratory Rate--Oxygen Saturation--Inhaled Oxygen Concentration--Muibjx79.5 kg (140 lb)08/19/2018 12:00 PM PYIBomgfr646.6 cm (5' 4 )08/19/2018 12:00 PM ESTBody Mass Index24.03110/19/2017 12:00 PM EST Plan of Treatment Not on file Procedures Procedure NamePriorityDate/TimeAssociated DiagnosisCommentsALL TYPE AND SCREEN Dwljgob5807/22/2025 9:51 AM EDT OB IBEJNLWHBNXMQxiwqll60/30/2025 2:23 PM EDT Missed menses Positive urine test ([facility]) from Last 3 Months Results * ALL TYPE AND SCREEN (07/22/2025 9:51 AM EDT)ComponentValueRef RangeTest Method Analysis TimePerformed AtPathologist SignatureBLOOD TYPEA NegativeTBHANTIBODY SCREENNEGATIVETBHSpecimen (Source)Anatomical Location / LateralityCollection Method / VolumeCollection TimeReceived Time07/22/2025 9:51 AM EDT1 9:52 AM EDT Narrative [facility] - 07/22/2025 10:47 AM EDT [facility] , ?? Authorizing ProviderResult TypeResult StatusCorey Bari DOCLINISYNCFinal Result Performing OrganizationAddressCity/State/ZIP CodePhone Number [facility] * OB transvaginal (07/21/2025 2:23 PM EDT)Anatomical RegionLateralityModality BodyUltrasoundSpecimen (Source)Anatomical Location / LateralityCollection Method / VolumeCollection TimeReceived Time07/21/2025 2:53 PM EDT Impressions 07/21/2025 3:22 PM EDT Single intrauterine gestational sac with pole, age of which suggests an 8 week and 0 day gestational age, however absence of cardiac activity does not confirm viability. Correlate with hCG findings, BULK INTAKE WORKER consultation at this time. TRANSCRIBED BY: ? [...] Bari DOI OB US PROCEDURES Final Result from Last 3 Months Insurance Care Teams Team MemberRelationshipSpecialtyStart DateEnd Elva Traore MD [address] [place] [address] PCP - External PCPFamily Medicine03/01/23
--- OUTSIDE RECORDS SUMMARY | 2025-07-25 06:53 | XMS_ITS | Patient Health Record ---
Author Organization The [facility] [place] Address [address] [place] [address] Support Name Relationship Address Phone Lorena Gotti [...] Unknown 11/18/2003 Pending 18 Nov 2003 Flu, (48535) -historic- Split, Prsrvtve Free, for Intradermal use Intramuscular 06/30/2009 Pending [id number] 03:23P M Hep B, Adult, 3 Dose [...] eb 1999 HPV (Gardasil) Intramuscular 06/30/2009 Pending [id number] 09 03:25PM HPV (Gardasil) Intramuscular 08/30/2009 Pending [id number] 09 09:18AM HPV (Gardasil) Intramuscular 12/29/2009 Pending [id number] 10 09:30AM Meningococcal (Menactra) Intramuscular 03/05/2011 Pending [id number] 03:36PM MMR Unknown 04/26/1999 Pending 26 Apr 1999 MMR Unknown 11/18/2003 Pending 18 Nov 2003 Polio Virus, IPV Unknown 1998 Pending Aug 22 998 Polio Virus, IPV Unknown 1998 Pending Nov 20 999 Polio Virus, IPV Unknown 04/26/1999 Pending Apr 22 999 Polio Virus, IPV Unknown 11/18/2003 Pending Oct 2 004 Tdap Intramuscular 05/28/2011 Pending [id number] 0 9:40AM Varicella Unknown 04/26/1999 Pending 26 Apr 1999 Plan Of Treatment No Information
[2025-07-25 06:55] VITALS: BP 125/71; PULSE 58; TEMP 36.3; O2SAT 100; BMI 24.1
[2025-07-25 06:56] LABS: Hematocrit 39.3 % (36.0-48.0); Hemoglobin 14.1 g/dL (12.0-16.0); Immature Granulocytes Abs Auto 0.01 10^3/uL (0.00-0.03); Immature Granulocytes Pct Auto 0.2 % (0.0-0.5); Lymphocytes Absolute Auto 2.2 10^3/uL (1.2-3.8); Mean Corpuscular HGB Conc 35.9 g/dL (29.9-35.2); Mean Corpuscular Hemoglobin 34.7 pg (26.7-34.0); Mean Corpuscular Volume 96.8 fL (81.0-99.0); Platelet Count 269 10^3/uL (150-450); Red Blood Count 4.06 10^6/uL (4.20-5.40); White Blood Count 6.5 10^3/uL (4.0-11.0)
--- NOTE | 2025-07-25 07:16 | US_ITS ---
The [address] [address] Patient Name: BEER LOZANO MRN: [id number] date: 2000 Sex: F Assigned Patient Location: [facility] Current Patient Location: [facility] Accession/Order Number: [id number] Exam Date: 07/25/2025 07:08 Report Date: 07/25/2025 08:03 At the request of: GALLITO HENRIQUEZ DO Procedure: US OB <= 14 weeks fetus FIRST TRIMESTER OB ULTRASOUND CLINICAL DATA: Confirmation of demise before D&C. COMPARISON: None The urinary bladder is empty. A gestational sac is visualized within the uterus. A pole is present with crown-rump length measurement of 1.3 cm. This would correlate with an ultrasound age of 7 weeks 3 days. Based on the mean gestational sac size of 3.2 cm, this would correlate with an ultrasound age of 8 weeks 1 day. No cardiac activity was documented confirming demise. US/US OB <= 14 weeks fetus IMPRESSION: NONVIABLE INTRAUTERINE . Impression dictated by: Sherry Jonas M.D. 07/25/2025 8:03 AM Dictation Location: [place] [address] Electronically authenticated by: [id number] Y Date: 07/25/2025 08:03
--- NOTE | 2025-07-25 09:03 | PM.ONB ---
Brief Operative Note Date of procedure: 07/25/25 Pre-op diagnosis general: missed , first trimester Post-op diagnosis: same as pre-op Procedure: NAME OF PROCEDURE: [D&C suction ] PROCEDURE: The patient was taken back to the OR where she was given general anesthesia without difficulty. She was then placed in dorsal lithotomy position, prepped and draped in the normal sterile fashion. A weighted speculum was placed in the patient's vagina and the anterior lip of the cervix was identified and grasped with a single-tooth tenaculum. The patient was then gently dilated using Hegar dilators after we had sounded roughly to 12 cm. The suction curette was then tested. The suction curette was then placed in the patient's uterus and products of conception were removed using an 10-Bolivian suction curette. ?Excellent hemostasis was noted. The patient tolerated the procedure well. Sponge, lap, and needle counts were correct x 2. All instruments were then removed from the patient's vagina. The patient was taken to the Recovery Room in stable condition. ?? Anesthesia: MAC Surgeon: Eusebio Candelaria Estimated blood loss (mL): 5 Pathology: other (poc) Condition: stable Disposition: PACU Urinary Catheter Management Urinary Catheter Management Urethral: Cath placed during this visit: no
[2025-07-25 09:06] VITALS: BP 95/64; PULSE 73; O2SAT 95
[2025-07-25] MEDS: RHO(D) IMMUNE GLOBULIN 1,500 UNIT SYRINGE 1500 UNIT IM (09:18)
[2025-07-25 09:21] VITALS: BP 107/63; PULSE 64; O2SAT 98
[2025-07-25 09:36] VITALS: BP 110/76; PULSE 61; O2SAT 99
[2025-07-25 10:06] VITALS: BP 108/66; PULSE 50; O2SAT 100
[2025-07-25 10:36] VITALS: BP 110/76; PULSE 53; O2SAT 99
== END 2025-07-25 10:36 | disposition home or self-care (01) ==
PROVIDERS: Visit Provider Obstetrics & Gynecology
PROC: (CPT 1965; principal; 2025-07-25 08:05)
DX: O02.1 Missed abortion (principal); Z87.442 Personal history of urinary calculi
CPT/HCPCS: 59820; 36415; 76801; 84702; 85025; J1885; J2250; J2405; J2590; J2704; J2791; J3010

== ENCOUNTER 2025-07-28 10:47 | Emergency (ER) | payer OTHER, SELFPAY ==
--- OUTSIDE RECORDS SUMMARY | 2025-07-21 13:00 | XMS_ITS | Encounter Summary ---
Author Organization [facility] Address [address] [facility] [place] [address] Care Team Providers Care Ethics Officer Name Role Phone Elva Traore MD Unavailable [phone] Encounter Details DateTypeDepartmentCare Team (Latest Contact Info)Daoxjfunjbo66/30/2025 2:00 PM EDTAncillary Procedure [facility] Rosi CRISOSTOMO [address] [facility] [place] [address] Missed menses; Positive urine test ([facility]) Social History Tobacco UseTypesPacks/DayYears UsedDateSmoking Tobacco: Never Assessed CommentsUnknownSex and Gender InformationValueDate RecordedSex Assigned at Not on fileLegal NllYnfpwn31/15/2023 8:05 PM EDTGender IdentityNot on fileSexual OrientationNot on filedocumented as of this encounter Plan of Treatment DateTypeDeozarks community hospitalCare Team (Latest Contact Info)Aqaonkyfmoh00/11/2025 10:50 AM ESTOffice Visit NOMElo CRISOSTOMO [address] [facility] [place] [address] Wendie Aldridge PA [address] [facility] [place] [address] documented as of this encounter Procedures Procedure NamePriorityDate/TimeAssociated DiagnosisCommentsUS OB TRANSVAGINAL Theztrd4607/21/2025 2:23 PM EDT Missed menses Positive urine test ([facility]) documented in this encounter Results * US OB transvaginal (07/21/2025 2:23 PM EDT)Anatomical RegionLateralityModality BodyUltrasoundSpecimen (Source)Anatomical Location / LateralityCollection Method / VolumeCollection TimeReceived Time07/21/2025 2:53 PM EDT Impressions 07/21/2025 3:22 PM EDT Single intrauterine gestational sac with pole, age of which suggests an 8 week and 0 day gestational age, however absence of cardiac activity does not confirm viability. Correlate with hCG findings, IT COMMUNICATIONS SPECIALIST consultation at this time. TRANSCRIBED BY: ? ELECTRONICALLY SIGNED BY: Stephen Shipman MD Narrative 07/21/2025 3:22 PM EDT FINDINGS: A single intrauterine gestational sac is present with a fairly normal appearing decidual reaction, however there is no cardiac activity identified within a single pole, 1.5 cm which suggests an8 week and 0 day gestational age. Closed cervix. No normal appearing yolk sac. Procedure Note Stephen Shipman MD - 07/21/2025 FINDINGS: A single intrauterine gestational sac is present with a fairly normalappearing decidual reaction, however there is no cardiac activityidentified within a single pole, 1.5 cm which suggests an 8 week and0 day gestational age. Closed cervix. No normal appearing yolk sac. IMPRESSION: Single intrauterine gestational sac with pole, age of which suggestsan 8 week and 0 day gestational age, however absence of cardiac activitydoes not confirm viability. Correlate with hCG findings, OB/GYNconsultation at this time. TRANSCRIBED BY: ELECTRONICALLY SIGNED BY: Stephen Shipman MD Authorizing ProviderResult TypeResult StatusCorey Bari [facility] OB US PROCEDURES Final Result documented in this encounter Visit Diagnoses Diagnosis Missed menses Positive urine test ([facility]) documented in this encounter Care Teams Team MemberRelationshipSpecialtyStart DateEnd Date Elva Traore MD [address] [place] [phone] PCP - External PCPFamily Medicine03/01/23documented as of this encounter
--- OUTSIDE RECORDS SUMMARY | 2025-07-21 13:30 | XMS_ITS | Encounter Summary ---
Author Organization [facility] Address [address] [facility] [place] [address] Care Team Providers Care Email Marketing Intern Name Role Phone Elva Traore MD Unavailable [phone] Reason for Visit * ReasonCommentsmissed Encounter Details DateTypeDepartmentCare Team (Latest Contact Info)Nwwlrexujsr66/30/2025 2:30 PM EDTOffice Visit NOMElo CRISOSTOMO [address] [place] [address] Dayanara Greer, TRI [address] [facility] [place] [address] Missed menses; Missed ([facility]) Social History Tobacco UseTypesPacks/DayYears UsedDateSmoking Tobacco: Never Assessed CommentsUnknownSex and Gender InformationValueDate RecordedSex Assigned at Not on fileLegal UdrFahsog93/15/2023 8:05 PM EDTGender IdentityNot on fileSexual OrientationNot on filedocumented as of this encounter Plan of Treatment DateTypeDepartuniversity of michigan healthCare Team (Latest Contact Info)Intfhtwaxji13/11/2025 10:50 AM ESTOffice Visit [facility] Rosi CRISOSTOMO [address] [place] [address] Wendie Aldridge PA [address] [facility] [place] [address] documented as of this encounter Results * [...] not confirm viability. Correlate with hCG findings, RETAIL POS SPECIALIST consultation at this time. TRANSCRIBED BY: [...] Shipman MD Authorizing ProviderResult TypeResult StatusCorey Bari [facility] OB US PROCEDURES Final Result documented in this encounter Visit Diagnoses Diagnosis Missed menses Positive urine test ([facility]) Missed menses Missed ([facility]) Missed documented in this encounter Care Teams Team MemberRelationshipSpecialtyStart DateEnd Date Elva Traore MD [address] [place] [address] PCP - External PCPFamily Medicine03/01/23documented as of this encounter
--- OUTSIDE RECORDS SUMMARY | 2025-07-25 19:38 | XMS_ITS | Continuity of Care Document ---
Author Organization [facility] Address [address] [place] [address] Phone Care Team Providers Care Production Artist Name Role Phone Eusebio Candelaria DO Attending Provider [phone] Care Teams Patient Care Team Team Status: Inactive Member Role/Relationship Status Dates Eusebio Candelaria DO Attending Provider Active Start : July 25, 2025 End: July 25, 2025 Chief Complaint and Reason for Visit Chief Complaint Admit Date Unknown July 25, 2025 8 :54am Social History Smoking Status Unknown if ever smoked Observation Status Observation Response Date of Response Legal Sex Female (finding) [facility] 1999 Family History Relationship Condition Age at Onset Recorded Date/T ashok father Hypertension Unknown Encounters Encounter Location(s) Arrival/Admit Date Discharge/Departure Date Discharge/Departure Disposition Provider(s) Departed Referred -LAB Path [facility] July 25, 2025 8:54am July 25, 2025 8:55am Discharged to home care or self care (routine discharge) Eusebio Candelaria Plan of Treatment Future Tests Future scheduled test information is unavailable Pending Tests Test Name Ordered Date Scheduled Date Miscellaneous Pathology Test July 25, 2025 8:54am Future Visits Future appointment information is unavailable Future Procedures Procedure Name Ordered Date Scheduled Date Pathology Request for Lab Aminta July 25 1:28pm July 25, 2025 8:54am Future Medications Future medication information is unavailable Patient Instructions Patient instructions are unavailable
[2025-07-28 10:52] VITALS: BP 121/66; PULSE 77; TEMP 36.7; O2SAT 100; BMI 23.8
--- OUTSIDE RECORDS SUMMARY | 2025-07-28 10:52 | XMS_ITS | Clinical Summary ---
Author Organization [employer] [facility] Address [facility] [address] [place] [address] Care Team Providers Care Counter Tender Name Role Phone Luzmaria Elizondo MD Primary Care Provider [phone] Allergies No known active allergies Medications MedicationSigDispense QuantityRefillsLast FilledStart DateEnd DateStatus levonorgestreL-ethinyl estrad ([place]) 0.15 mg-30 mcg (91) per tablet Indications:Encounter for initial prescription of contraceptive pillsTake 1 tablet by mouth in the morning. 91 tablet ctive Active Problems ProblemNoted DateDiagnosed DateHydronephrosis with ureteropelvic junction (UPJ) mpqwwtzrdwa86/11/2022 Resolved Problems ProblemNoted DateDiagnosed DateResolved DatePain during labor05/09/2023 06/25/20236105Hckoktywqwggfuo96/04/202306/11/20238110Mdtoxeuylaa14/04/202306/11/2023 Renal calculus, right/ Overview (06/26/2022): 04/02/22: Right 5 x 5 mm uvj stone. URS 07/02/22:: Litho link demonstrating volume 1.22, other parameters normal Cvwkyzrxylj03/11/202210/ain during labor/09/2022Intrauterine tddpnekxe00uspected COVID-19 virus izneqkmeb48/04/2020 11/07/2021cute URI1/hest pain Encounters DateTypeDepartmentCare LzxlDyermisdiuv81/08/2025Orders Only [facility] Obstetrics/Gynecology [address] [place] [address] Wendie Aguilar RN 04/28/2025Telephone [facility] Obstetrics/Gynecology [address] [place] [address] Wendie Aguilar, DILCIA from Last 3 Months Immunizations ImmunizationAdministration DatesNext DueRho (D) Immune Zuoddxfq90/19/2023, 02/24/2023,01/14/2022,11/07/2021Tdap02/24/2023,11/07/2021 Family History Medical HistoryRelationNameCommentsNo Known ProblemsBrotherNo [...] relatives?Twice a week11/23/2022How often do you attend sabianism or yazidism services?Never11/23/2022o you belong to any clubs or organizations such as sabianism groups, unions, fraternal or athletic groups, or school groups?No 11/23/2022How often do you attend meetings of the clubs or organizations you belong to?Never11/23/2022re you , , , , never , or living with a partner?Living with zmlclaa6211/23/2022UDIT-CAnswerDate RecordedQ1: How often do you have a [...] care, and heating?Not hard at all11/23/2022HQ-2AnswerDate RecordedTotal Cbnev785Finmoab regional hospital [place] of Occupational Health - Occupational Stress QuestionnaireAnswerDate RecordedDo you feel stress - tense, restless, nervous, or anxious, or unable to sleep at night because yourmind is troubled all the time - these days?Only a zimnsg1411/23/2022Exercise Vital Sign AnswerDate RecordedOn average, how many [...] part of a household?No11/23/2022hildcareAnswerDate RecordedDo problems getting assistant child care teacher make it difficult for you to [...] InformationValueDate RecordedSex Assigned at BirthNot on fileLegal FtdGlzvkz89/06/2015 11:54 AM EDT Gender IdentityNot on fileSexual OrientationNot on file Last Filed Vital Signs Vital SignReadingTime TakenCommentsBlood Wnvlxtwu096/78002/23/2024 9:01 AM EDT Spnct9546 2:54 PM WZQApdwihksfkt79.5 ??C (97.7 ??F)05/10/2023 2:41 PM EDTRespiratory Cfym293305/10/2023 2:41 PM EDTOxygen Ljkavpavtk44%11/24/2022 8:34 AM ESTInhaled Oxygen Concentration--Hbsioo56.5 kg (126 lb 12.8 oz)02/23/2024 9:01 AM ZZVYtqdkc232.5 cm (5' 2 )02/23/2024 9:01 AM EDTBody Mass Index23.19 02/23/2024 9:01 AM EDT Plan of Treatment DateTypeDepartmentCare Team (Latest Contact Info)Hgqpcutymqd29/06/2026 1:50 PM ESTOffice Visit [facility] Obstetrics/Gynecology [address] [place] [address] [place] [address] Nilo Call MD [address] [place] [address], [address] [place] [address] Health MaintenanceDue DateLast DoneCommentsDepression Sxximkwbm80/04/2024 11/23/2022dult BMI Btgzelfqk26Tobacco Lqkydwukq54/03/2025 02/23/2024ap Smear/05/2022, 05/21/2018Influenza Vcmxpel0805/23/2025 06/30/2009, 10/05/2003, 08/31/2003DTaP,Tdap and Td Vaccines (10 [...] Narrative COPATH - 03/06/2022 2:22 PM EDT [facility] ? [address] [place] [address] ? [place] [address] ? Gynecologic Cytology Consultation ? Patient Name:LORENA GOTTI:2000 (Age: 21)Gender:FTaken:02/28/2022eported:03/06/2022hysician(s):Nilo Perez M.D. ([phone])Copy To: Rec. #:[id number]: #[id number] Final Cytologic Interpretation ThinPrep Pap Test (Cervical): Satisfactory for evaluation. A transformation zone component is present. NEGATIVE FOR INTRAEPITHELIAL LESION OR MALIGNANCY. ?? [facility]/03/06/2022 Interpretation performed at [facility], [address] [place] [address], License number: [id number]. Electronically Signed Out By ?HALEY Almeida(ASCP) Date of Last Menstrual Period: ? (None Given) Other Clinical Conditions: Post Z39.2 Post Source of Specimen ??ThinPrep Pap Test (Cervical) ? Thin Prep Pap (EMT PARAMEDIC) Fee Code(s): ?? G0145 Authorizing ProviderResult TypeResult StatusAlexis Patricia Perez MD PATHOLOGY/CYTOLOGY ORDERABLESFinal ResultPerforming OrganizationAddress City/State/ZIP CodePhone Number COPATH from Last 3 Months or Most Recently Relevant to Health Maintenance Insurance [address] [place] [address] Advance Directives * Full Code (Latest Code Status on File) Date ActivatedDate InactivatedComments05/09/2023 8:49 AM05/10/2023 6:36 PM * Full Code Date ActivatedDate InactivatedComments11/23/2022 10:14 AM11/24/2022 5:20 PM * Full Code Date ActivatedDate InactivatedComments04/01/2022 11:09 PM04/02/2022 4:45 PM * Full Code Date ActivatedDate InactivatedComments01/13/2022 7:59 AM01/15/2022 8:16 PM Care Teams Team MemberRelationshipSpecialtyStart DateEnd Date Luzmaria Elizondo MD [address] [place] [address] PCP - GeneralFamily Medicine01/23/21
--- OUTSIDE RECORDS SUMMARY | 2025-07-28 10:52 | XMS_ITS | Encounter Summary ---
Author Organization [facility] Address [address] [place] [address] [place] [address] Care Team Providers Care Ror Engineer Name Role Phone Elva Traore MD Unavailable [phone] Encounter Details DateTypeDepartmentCare Team (Latest Contact Info)Aahfgpzmagb06/06/2025Telephone [facility] [address] [facility] [place] [address] Eusebio Candelaria DO [address] [place] [address] Social History Tobacco UseTypesPacks/DayYears UsedDateSmoking Tobacco: Never Assessed CommentsUnknownSex and Gender InformationValueDate RecordedSex Assigned at Not on fileLegal BrwVdtsos96/15/2023 8:05 PM EDTGender IdentityNot on fileSexual OrientationNot on filedocumented as of this encounter Miscellaneous Notes * Telephone Encounter - Kayleigh YULISSA Stern - 07/28/2025 9:48 AM EST I was just calling because I had a D&C on Friday and I just wanted to ask some questions because I am not really feeling that great. 9:52 am- Patient call was returned and she did state D&C on Friday and second day was ok and bleeding seemed normal and yesterday she started to not feel good she has been aching, fever possible,body hurt, back and neck hurts, cramping more and temp this morning was normal but not sure if thermometer worse the best. Patient states that her kids have been sick recently and she does not want to just assume its from them.. Patient states does not want to move and sitting in car is painful. Patient advised with what she is experiencing it would be best to get checked out to more sure nothing else is going on and she didvoice understanding in this. documented in this encounter Plan of Treatment DateTypeDepartmentCare Team (Latest Contact Info)Hysrqhewizx83/11/2025 10:50 AM ESTOffice Visit [facility] Rosi CRISOSTOMO [address] [facility] [place] [address] Wendie Aldridge PA [address] [place] [address] documented as of this encounter Visit Diagnoses Not on filedocumented in this encounter Care Teams Team MemberRelationshipSpecialtyStart DateEnd Date Elva Traore MD [address] [place] [address] PCP - External PCPFamily Medicine03/01/23documented as of this encounter
--- OUTSIDE RECORDS SUMMARY | 2025-07-28 10:54 | XMS_ITS | Encounter Summary ---
Author Organization [facility] Address [address] [place] [address] Care Team Providers Care Warp Clamper Name Role Phone Elva Traore MD Unavailable [phone] Encounter Details DateTypeDepartmentCare Team (Latest Contact Info)Nolhylampmn32/03/2025linisync Result Encounter NOMS External Department Unsolicited Eusebio Candelaria [address] [facility] [address] [place], [facility] Social History Tobacco UseTypesPacks/DayYears UsedDateSmoking Tobacco: Never Assessed CommentsUnknownSex and Gender InformationValueDate RecordedSex Assigned at Not on fileLegal BbtFhxsur52/15/2023 8:05 PM EDTGender IdentityNot on fileSexual OrientationNot on filedocumented as of this encounter Plan of Treatment DateTypeDebaptist health medical centerCare Team (Latest Contact Info)Fznpacieqjd02/11/2025 10:50 AM ESTOffice Visit [facility] [place] [facility] [address] [place] [address] Wendie Aldridge PA [address] [facility] [place] [address] documented as of this encounter Procedures Procedure NamePriorityDate/TimeAssociated DiagnosisCommentsUS OB L= 14 WEEKS FETUS07/25/2025 8:03 AM EST documented in this encounter Results * OB L= 14 WEEKS FETUS (07/25/2025 8:03 AM EST)Anatomical RegionLaterality ModalityOtherSpecimen (Source)Anatomical Location / LateralityCollection Method / VolumeCollection TimeReceived Time07/25/2025 8:03 AM EST Narrative 07/25/2025 8:05 AM EST The [facility] ?[address] ? [place] [address] ? Ultrasound Report ? Signed ? Patient: BERE GOTTI ?MR#: [id number] ?? : 2000 ?Acct:[id number] ?? Age/Sex: 25 / F ?ADM Date: 07/25/25 ?? Loc: SURGOUT ? Attending Dr: Eusebio Candelaria D.O. ? Ordering Physician: Eusebio Candelaria D.O. ?? Date of Service: 07/25/25 ?? Procedure(s): US OB <= 14 weeks fetus Accession Number(s): [id number] ? cc: Eusebio Candelaria D.O.; Physician,Non-Staff MElyssa ? The [facility] ? [address] ? [place] [address] ? Patient Name: ?? BRANDONYLEDalia ??MARTA ? MRN: [facility]:[id number] ? date: 2000 ?Sex: F ?? Assigned Patient Location: SURGOUT ?? Current Patient Location: SURGOUT ?? Accession/Order Number: [id number] ?? Exam Date: 07/25/2025 ??07:08 ?Report Date: 07/25/2025 ??08:03 ? At the request of: ?? EUSEBIO ??BARI ??DO ? Procedure: US OB <= 14 weeks fetus ?? FIRST TRIMESTER OB ULTRASOUND ? CLINICAL DATA: Confirmation of demise before D C. ? COMPARISON: None ? The urinary bladder is empty. ??A gestational sac is visualized within the ?? uterus. ??A pole is present with crown-rump length measurement of 1.3 cm. ?? This would correlate with an ultrasound age of 7 weeks 3 days. ??Based on the ?? mean gestational sac size of 3.2 cm, this would correlate with an ultrasound ?? age of 8 weeks 1 day. ??No cardiac activity was documented confirming ?? demise. ? US/US OB <= 14 weeks fetus IMPRESSION: ? NONVIABLE INTRAUTERINE . ? Impression dictated by: Sherry Jonas M.D. ??07/25/2025 8:03 AM ? Dictation Location: [facility] ? Electronically authenticated by: [id number] ??Y ?? Date: 07/25/2025 ??08:03 ? Dictated By: ?Sherry Jonas M.D. ? Signed By: ?07/25/25 0805 ? DD/ 0803 ? TD/TT: ? [employer] Supervisor: Procedure Note Radiology, Radiologist, - 07/25/2025 [place] [address] Ultrasound Report Signed Patient: THANH GOTTIR#: [id number] : 2000Acct:[id number] Age/Sex: 25 / FADM Date: 07/25/25 Loc: SURGOUT Attending Dr: Eusebio Candelaria D.O. Ordering Physician: Eusebio Candelaria D.O. Date of Service: 07/25/25 Procedure(s): US OB <= 14 weeks fetus Accession Number(s): [id number] cc: Eusebio Candelaria D.O.; Physician,Non-Staff Kevin The [place] [address] Patient Name: BERE GOTTI MRN: [id number] date: 2000 Sex: F Assigned Patient Location: [facility] Current Patient Location: [facility] Accession/Order Number: [id number] Exam Date: 07/25/2025 07:08 Report Date: 07/25/2025 08:03 At the request of: EUSEBIO CANDELARIA DO Procedure: US OB <= 14 weeks fetus FIRST TRIMESTER OB ULTRASOUND CLINICAL DATA: Confirmation of demise before D C. COMPARISON: None The urinary bladder is empty. A gestational sac is visualized within the uterus. A pole is present with crown-rump length measurement of 1.3cm. This would correlate with an ultrasound age of 7 weeks 3 days. Based onthe mean gestational sac size of 3.2 cm, this would correlate with anultrasound age of 8 weeks 1 day. No cardiac activity was documented confirming demise. US/US OB <= 14 weeks fetus IMPRESSION: NONVIABLE INTRAUTERINE . Impression dictated by: Sherry Jonas M.D. 07/25/2025 8:03 AM Dictation Location: [place] [address] Electronically authenticated by: [id number] Y Date: 508:03 Dictated By: Sherry Jonas M.D. Signed By:07/25/25804 DD/ 2 TD/TT: [employer] Supervisor: Authorizing ProviderResult TypeResult StatusCorey Bari DOCLINISYNC IMAGINGFinal Result documented in this encounter Visit Diagnoses Not on filedocumented in this encounter Care Teams Team MemberRelationshipSpecialtyStart DateEnd Date Elva Traore MD [address] [place] [address] PCP - External PCPFamily Medicine03/01/23documented as of this encounter
--- OUTSIDE RECORDS SUMMARY | 2025-07-28 10:54 | XMS_ITS | Patient Health Record ---
Author Organization [facility] vices Address [address]ENTERJefferyB[place], [place] [id number] Support Name Relationship Address Phone Shen Rosangela Emergency Contact [address] [place] [address] Lorena Gotti Guarantor Unknown Allergies No Known [...] W/U Status Risk Notes Problem Irregular periods (83673780) Irregular pe riods (N92.6) ActiveconfirmedComment:Strongly advised to [...] 4wks routine .,Description:Supervision of low-risk ProblemDepression screening (019830334)Screening for depression (Z13.31)Active confirmedDescription:Depression screenProblemContraception care management (396572041)Contraception management (Z30.9)ActiveconfirmedProblemUpper respiratory infection (19395751)URI (upper respiratory infection) (J06.9)Active confirmed Comment:Discussed with patient at length No signs of bacterial infection Counselled on lifestyle modifications including diet and exercise. Also, discussed with patient to increase hydration Again, encourage to get vaccinated. PVU., ProblemBacterial vaginosis (disorder) (954615611)BV (bacterial vaginosis) (N76.0)ActiveconfirmedProblemWell female adult (789280940)Well woman exam (Z01.419)ActiveconfirmedComment:Discussed with patient at length - she is ready to get . She understands the risks without being on any control and not using any condoms, and not considering any other contraception. Currently, she has only one male partner. Also, denied breast examination today.,ProblemBacterial vaginosis (125761954)Bacterial vaginosis (N76.0)Active confirmed Comment:Discussed with patient - [...] sent for anatomic survey. 7. Moved to [place] and will be transferring care there., ProblemAcute sinusitis (30386710)Acute sinusitis (J01.90)Activeconfirmed Comment:see patient message,ProblemNausea and vomiting in (2498823852) Nausea and vomiting in (O21.9)ActiveconfirmedProblemIrregular menstruation (18529489)Menstrual abnormality (N92.6)ActiveconfirmedComment:She has had extensive work up with MARKET DEVELOPMENT TRAINER - No concern. We will continue to monitor., ProblemEarly stage of (finding) (153571477) at early stage (Z34.90)ActiveconfirmedComment:1. RTC for ob intake appt after US.,Problem Headache (79444900)Headache (R51.9)ActiveconfirmedComment:Discussed with patient at length - patient tried only 50 mg for the last episode - which did not help a lot. Discuss with patient to take another one 2 hours later if needed. Patient voices understanding. Continue to keep a headache diary. PVU. No red flag concerns.,ProblemVomiting of (32189666)Nausea/vomiting in (O21.9)ActiveconfirmedProblemCandidiasis (14801384)Yeast infection (B37.9)Active confirmedProblemHistory of infectious disease (143358064)History of chlamydia (Z86.19)ActiveconfirmedComment:Negative STD panel including negative HIV screening - discussed with patient in person. PVU.,ProblemHistory and physical examination, sports participation (235457883)Sports physical (Z02.5)Active confirmed Comment:-pt UTD with immunizations, no known medical condition or on prescribed medications -PE is with in normal limits -cw healthy diet and physical exercises -f/u as needed, ProblemLumbar pain (384908501)Lumbar pain (M54.50)Activeconfirmed Comment:Likely strain that appears resolving. CT reported negative. Discuss with personal fitness trainer at [facility] to obtain exercises or stretches to begin., Plan Of Treatment No Information Insurance Providers Payer Name Payer Address Payer Phone Subscriber Number Group Number Insured Name Patient Relationship to Insured Coverage Start Date Coverage End Date [facility] [address] [place] [phone] [id number] Lorena Gotti Self - patient is the insured 3 Medicaid [facility] after [address] [place], [place] [id number], Shylee Self - patient is the [id number] 2022 Medical (General) History Medical History History ICD Code Bacterial vaginosis, Contraception managementCOVID-19 vaccination declinedHeadacheLumbar pain Supervision of low-risk pregnancySurgical History Surgery Date(Month/Year)
--- OUTSIDE RECORDS SUMMARY | 2025-07-28 10:54 | XMS_ITS | Encounter Summary ---
Author Organization [facility] Address [address] [place] [address] Care Team Providers Care Public Relations Analyst Name Role Phone Elva Traore MD Unavailable [phone] Encounter Details DateTypeDepartmentCare Team (Latest Contact Info)Dtvlpbnpdpc93/03/2025linisync Result Encounter [facility]OMS External Department Unsolicited Eusebio Candelaria [address] [place], [place] [address] Social History Tobacco UseTypesPacks/DayYears UsedDateSmoking Tobacco: Never Assessed CommentsUnknownSex and Gender InformationValueDate RecordedSex Assigned at Not on fileLegal LzlCsdkqu86/15/2023 8:05 PM EDTGender IdentityNot on fileSexual OrientationNot on filedocumented as of this encounter Plan of Treatment DateTypeDepiggott community hospitalCare Team (Latest Contact Info)Scdhafpiukv49/11/2025 10:50 AM ESTOffice Visit NOMElo CRISOSTOMO [address] [address] Wendie Aldridge PA [address] [place] [address] documented as of this encounter Procedures Procedure NamePriorityDate/TimeAssociated DiagnosisCommentsTBH PREG QUANT HCG Izshhss9407/25/2025 6:52 AM EST ALL CBC WITH AUTO IKGZSzbzayj95/03/2025 6:52 AM EST documented in this encounter Results * TBH PREG QUANT HCG (07/25/2025 6:52 AM EST)ComponentValueRef RangeTest Method Analysis TimePerformed AtPathologist SignatureHCG YAWHQAAWJDRR61,268mIU/mLTBH Comment: 5-50 ? 0.2-1 WEEK 50-500 ? 1-2 WEEKS 100-5,000 ?2-3 WEEKS 500-10,000 ? 3-4 WEEKS 1,000-50,000 ?? 4-5 WEEKS 10,000-100,000 5-6 WEEKS 15,000-200,000 6-8 WEEKS 10,000-100,000 2-3 MONTHS Specimen (Source)Anatomical Location / LateralityCollection Method / Volume Collection TimeReceived Time07/25/2025 6:52 AM EST07/25/2025 6:54 AM EST Narrative [facility] - 07/25/2025 7:39 AM EST Authorizing ProviderResult TypeResult StatusCorey Bari DOCLINISYNCFinal Result Performing OrganizationAddressCity/State/ZIP CodePhone Number [facility] * (ABNORMAL) ALL CBC WITH AUTO DIFF (07/25/2025 6:52 AM EST)ComponentValueRef RangeTest MethodAnalysis TimePerformed AtPathologist SignatureTBH WBC6.54.0 - 11.0 10 3/uLTBHTBH RBC4.06(L)4.20 - 5.40 10 6/uLTBHTBH HGB14.112.0 - 16.0 g/dL TBHTBH HCT39.336.0 - 48.0 %TBHTBH MCV96.881.0 - 99.0 fLTBHTBH MCH34.7(H)26.7 - 34.0 pgTBHTBH MCHC35.9(H)29.9 - 35.2 g/dLTBHTBH RDW11.811.0 - 15.0 %TBHTBH PLT 138314 - 450 10 3/uLTBHTBH MPV8.7(L)9.5 - 13.5 fLTBHNEUTROPHILS PERCENT AUTO 56.843.0 - 75.0 %TBHLYMPHOCYTES PERCENT AUTO33.620.5 - 60.0 %TBHMONOCYTES PERCENT AUTO7.41.7 - 12.0 %TBHTBH EO %1.40.9 - 7.0 %TBHBASOPHILS PERCENT AUTO 0.60.2 - 2.0 %TBHIMMATURE GRANULOCYTES PCT AUTO0.20.0 - 0.5 %TBHNEUTROPHILS ABSOLUTE AUTO3.71.4 - 6.5 10 3/uLTBHLYMPHOCYTES ABSOLUTE AUTO2.21.2 - 3.8 10 3/uLTBHMONOCYTES ABSOLUTE AUTO0.50.3 - 0.8 10 3/uLTBHTBH EO #0.10.0 - 0.7 10 3/uLTBHBASOPHILS ABSOLUTE AUTO0.00.0 - 0.1 10 3/uLTBHIMMATURE GRANULOCYTES ABS AUTO0.010.00 - 0.03 10 3/uLTBHSpecimen (Source)Anatomical Location / LateralityCollection Method / VolumeCollection TimeReceived Time07/25/2025 6:52 AM EST07/25/2025 6:54 AM EST Narrative [facility] - 07/25/2025 7:01 AM EST Authorizing ProviderResult TypeResult StatusCorey Bari DOCLINISYNCFinal Result Performing OrganizationAddressCity/State/ZIP CodePhone Number [facility] documented in this encounter Visit Diagnoses Not on filedocumented in this encounter Care Teams Team MemberRelationshipSpecialtyStart DateEnd Date Elva Traore MD [address] [place] [address] PCP - External PCPFamily [facility]03/01/23documented as of this encounter
--- OUTSIDE RECORDS SUMMARY | 2025-07-28 10:54 | XMS_ITS | Patient Health Record ---
Author Organization [facility] in [place] Address [address] [place] [address] Support Name Relationship Address Phone Lorena Gotti Guarantor Unknown [phone] Reason For Referral No Information Medications Medication [...] Unknown 11/18/2003 Pending 18 Nov 2003 Flu, (25767) -historic- Split, Prsrvtve Free, for Intradermal use Intramuscular 06/30/2009 Pending 40Wjm6425 03:23P M Hep B, Adult, 3 Dose [...] eb 1999 HPV (Gardasil) Intramuscular 06/30/2009 Pending 29Hna42 09 03:25PM HPV (Gardasil) Intramuscular 08/30/2009 Pending 36Lvn96 09 09:18AM HPV (Gardasil) Intramuscular 12/29/2009 Pending 16Ctk87 10 09:30AM Meningococcal (Menactra) Intramuscular 03/05/2011 Pending 65Yxy3342 03:36PM MMR Unknown 04/26/1999 Pending 26 Apr 1999 MMR Unknown 11/18/2003 Pending 18 Nov 2003 Polio Virus, IPV Unknown 1998 Pending Aug 22 998 Polio Virus, IPV Unknown 1998 Pending Nov 20 999 Polio Virus, IPV Unknown 04/26/1999 Pending Apr 22 999 Polio Virus, IPV Unknown 11/18/2003 Pending Oct 2 004 Tdap Intramuscular 05/28/2011 Pending 69Ibh2303 0 9:40AM Varicella Unknown 04/26/1999 Pending 26 Apr 1999 Plan Of Treatment No Information
--- OUTSIDE RECORDS SUMMARY | 2025-07-28 10:54 | XMS_ITS | Encounter Summary ---
Author Organization [facility] Address [address] [facility] [place] [address] Care Team Providers Care Av Specialist Name Role Phone Elva Traore MD Unavailable [phone] Encounter Details DateTypeDepartmentCare Team (Latest Contact Info)Howoeybjmua97/30/2025Telephone [facility] Rosi CRISOSTOMO [address] [facility] [address] [place] [address] Sydni Zhang MA Social History Tobacco UseTypesPacks/DayYears UsedDateSmoking Tobacco: Never Assessed CommentsUnknownSex and Gender InformationValueDate RecordedSex Assigned at Not on fileLegal NvqMlcbos28/15/2023 8:05 PM EDTGender IdentityNot on fileSexual OrientationNot on filedocumented as of this encounter Miscellaneous Notes * Telephone Encounter - Sydni Zhang MA - 07/21/2025 2:52 PM EDT Per joann order serial hCG's to have drawn weekly until level is below 5 documented in this encounter Plan of Treatment DateTypeDepartmentCare Team (Latest Contact Info)Xjellfkrdma26/11/2025 10:50 AM ESTOffice Visit [facility] Rosi CRISOSTOMO [address] [facility] [address] [place] [address] Wendie Aldridge PA [address] [place] [address] NameTypePriorityAssociated DiagnosesOrder SchedulehCG, quantitative, LabRoutine Positive urine test ([facility]) Expected: 07/21/2025 (Approximate), Expires: 01/19/2026documented as of this encounter Visit Diagnoses Diagnosis Positive urine test ([facility]) documented in this encounter Care Teams Team MemberRelationshipSpecialtyStart DateEnd Date Elva Traore MD [address] [place] [phone] PCP - External PCPFamily Medicine03/01/23documented as of this encounter
--- OUTSIDE RECORDS SUMMARY | 2025-07-28 10:54 | XMS_ITS | Clinical Summary ---
Author Organization [facility] Address [address] [place] [address] Care Team Providers Care Lining Feller Name Role Phone Elva Traore MD Unavailable [phone] Allergies No known active allergies Medications MedicationSigDispense QuantityRefillsLast FilledStart DateEnd DateStatus albuterol HFA 90 mcg/act inhaler every 4 (four) hoursActive Encounters DateTypeDepartmentCare DhxbBpoeggtadhr03/06/2025Telephone [facility] Rosi CRISOSTOMO [address] [place] [address] Gallito Candlearia, DO 5Clinisync Result Encounter NOMS External Department Unsolicited Gallito Candelaria, DO 5Clinisync Result Encounter NOMS External Department Unsolicited Gallito Candelaria, DO 5Clinisync Result Encounter NOMS External Department Unsolicited Gallito Candelaria, DO 07/21/2025 2:30 PM EDTOffice Visit [facility] Rosi CRISOSTOMO [address] [facility] [place] [address] Dayanara Greer NP Missed menses; Missed ([facility])07/21/2025 2:00 PM EDTAncillary Procedure [facility] Rosi CRISOSTOMO [address] [place] [address] Missed menses; Positive urine test ([facility])07/21/2025Telephone [facility] Rosi CRISOSTOMO [address] [place] [address] Sydni Zhang MA from Last 3 Months Social History Tobacco UseTypesPacks/DayYears UsedDateSmoking Tobacco: Never Assessed CommentsUnknownSex and Gender InformationValueDate RecordedSex Assigned at Not on fileLegal MkxVnnaoy14/15/2023 8:05 PM EDTGender IdentityNot on fileSexual OrientationNot on file Last Filed Vital Signs Vital SignReadingTime TakenCommentsBlood Guatcqde369/7008/19/2018 12:00 PM EST Pulse--Temperature--Respiratory Rate--Oxygen Saturation--Inhaled Oxygen Concentration--Koolpp98.5 kg (140 lb)08/19/2018 12:00 PM EWTBzrxxm518.6 cm (5' 4 )08/19/2018 12:00 PM ESTBody Mass Index24.03110/19/2017 12:00 PM EST Plan of Treatment DateTypeDepartmentCare Team (Latest Contact Info)Qucmdhlomxm29/11/2025 10:50 AM ESTOffice Visit [facility] Rosi OBGYN [address] [place] [address] Wendie Aldridge PA [address] [facility] [place] [address] Procedures Procedure NamePriorityDate/TimeAssociated DiagnosisCommentsUS OB L= 14 WEEKS FETUS07/25/2025 8:03 AM EST TBH PREG QUANT JDSChivxzw16/03/2025 6:52 AM EST ALL CBC WITH AUTO DVPJDujifvp40/03/2025 6:52 AM EST ALL TYPE AND WQMVPHKwhdusc43/31/2025 9:51 AM EDT US OB DYCHNLQNLPLSUqiwnbg81/30/2025 2:23 PM EDT Missed menses Positive urine test ([facility]) from Last 3 Months Results * US OB L= 14 WEEKS FETUS (07/25/2025 8:03 AM EST)Anatomical RegionLaterality ModalityOtherSpecimen (Source)Anatomical Location / LateralityCollection Method / VolumeCollection TimeReceived Time07/25/2025 8:03 AM EST Narrative 07/25/2025 8:05 AM EST [facility] ?[address] ? [place] [address] ? Ultrasound Report ? Signed ? Patient: LORENA GOTTI ?MR#: [id number] ?? : 2000 ?Acct:[id number] ?? Age/Sex: 25 / F ?ADM Date: 07/25/25 ?? Loc: SURGOUT ? Attending Dr: Gallito Candelaria D.O. ? Ordering Physician: Gallito Candelaria D.O. ?? Date of Service: 07/25/25 ?? Procedure(s): US OB <= 14 weeks fetus Accession Number(s): [id number] ? cc: Gallito Candelaria D.O.; Physician,Non-Staff M.DJocelyne ? [facility] ? [address] [place] [address] ? [place] [address] ? Patient Name: ?? SHYLEE ??SCHMELTZ ? MRN: [facility]:[id number] ? date: 2000 ?Sex: F ?? Assigned Patient Location: SURGOUT ?? Current Patient Location: SURGOUT ?? Accession/Order Number: [id number] ?? Exam Date: 07/25/2025 ??07:08 ?Report Date: 07/25/2025 ??08:03 ? At the request of: ?? GALLITO ??BARI ??DO ? Procedure: US OB <= [...] M.D. ??07/25/2025 8:03 AM ? Dictation Location: [facility] ? Electronically authenticated by: [id number] ??Y ?? Date: 07/25/2025 ??08:03 ? Dictated By: ?Sherry Jonas M.D. ? Signed By: ?07/25/25 0805 ? DD/ 0803 ? TD/TT: ? Gas Shovel Operator: Procedure Note Radiology, Radiologist, - 07/25/2025 [place] [address] Ultrasound Report Signed Patient: THANH GOTTIR#: [id number] : 2000Acct:[id number] Age/Sex: 25 / FADM Date: 07/25/25 Loc: SURGOUT Attending Dr: Gallito Candelaira D.O. Ordering Physician: Gallito Candelaria D.O. Date of Service: 07/25/25 Procedure(s): US OB <= 14 weeks fetus Accession Number(s): [id number] cc: Gallito Candelaria D.O.; Physician,Non-Staff Kevin The [place] [address] Patient Name: LORENA GOTTI MRN: [facility]:[id number] date: 2000 Sex: F Assigned Patient Location: [facility] Current Patient Location: [facility] Accession/Order Number: [id number] Exam Date: 07/25/2025 07:08 Report Date: 07/25/2025 08:03 At the request of: GALLITO CANDELARIA DO Procedure: US OB <= 14 [...] Jonas M.D. 07/25/2025 8:03 AM Dictation Location: [place] [address] Electronically authenticated by: [id number] Y Date: 508:03 Dictated By: Sherry Jonas M.D. Signed By:07/25/25804 DD/ 2 TD/TT: Gas Shovel Operator: Authorizing ProviderResult TypeResult StatusCorey Bari DOCLINISYNC IMAGINGFinal Result * TBH PREG QUANT HCG (07/25/2025 6:52 AM EST)ComponentValueRef RangeTest Method Analysis TimePerformed AtPathologist SignatureHCG VFIACSFIARGC19,268mIU/mLTBH Comment: 5-50 ? 0.2-1 WEEK 50-500 ? [...] DOCLINISYNCFinal Result Performing OrganizationAddressCity/State/ZIP CodePhone Number [facility]NC [facility] * (ABNORMAL) ALL CBC WITH AUTO DIFF (07/25/2025 6:52 AM EST)ComponentValueRef RangeTest MethodAnalysis TimePerformed AtPathologist SignatureTBH WBC6.54.0 - 11.0 10 3/uLTBHTBH RBC4.06(L)4.20 - 5.40 10 6/uLTBHTBH HGB14.112.0 - 16.0 g/dL TBHTBH HCT39.336.0 - 48.0 %TBHTBH MCV96.881.0 - 99.0 fLTBHTBH MCH34.7(H)26.7 - 34.0 pgTBHTBH MCHC35.9(H)29.9 - 35.2 g/dLTBHTBH RDW11.811.0 - 15.0 %TBHTBH PLT 849514 - 450 10 3/uLTBHTBH MPV8.7(L)9.5 - 13.5 [...] Bari DOCLINISYNCFinal Result Performing OrganizationAddressCity/State/ZIP CodePhone Number [facility] * ALL TYPE AND SCREEN (07/22/2025 9:51 AM EDT)ComponentValueRef RangeTest Method Analysis TimePerformed AtPathologist SignatureBLOOD TYPEA NegativeTBHANTIBODY SCREENNEGATIVETBHSpecimen (Source)Anatomical Location / LateralityCollection Method / VolumeCollection TimeReceived Time07/22/2025 9:51 AM EDT1 9:52 AM EDT Narrative [facility] - 07/22/2025 10:47 AM EDT [facility] , ?? Authorizing ProviderResult TypeResult StatusCorey Bari [...] not confirm viability. Correlate with hCG findings, MARINE FARMER consultation at this time. TRANSCRIBED BY: ? [...] Bari DOIMG OB US PROCEDURES Final Result from Last 3 Months Insurance Care Teams Team MemberRelationshipSpecialtyStart DateEnd Elva Traore MD [address] [place] [address] PCP - External PCPFamily Medicine03/01/23
--- OUTSIDE RECORDS SUMMARY | 2025-07-28 10:54 | XMS_ITS | Encounter Summary ---
Author Organization [facility] Address [address] [place] [address] Care Team Providers Care Pediatric Orthodontist Name Role Phone Elva Traore MD Unavailable [phone] Encounter Details DateTypeDepartmentCare Team (Latest Contact Info)Nlhfckyyfvk06/31/2025linisync Result Encounter NOMS External Department Unsolicited Eusebio Candelaria [address] [place], [place] [address] Social History Tobacco UseTypesPacks/DayYears UsedDateSmoking Tobacco: Never Assessed CommentsUnknownSex and Gender InformationValueDate RecordedSex Assigned at Not on fileLegal ImmChhatj02/15/2023 8:05 PM EDTGender IdentityNot on fileSexual OrientationNot on filedocumented as of this encounter Plan of Treatment DateTypeDeadvanced care hospital of white countyCare Team (Latest Contact Info)Tszjwuzihrt27/11/2025 10:50 AM ESTOffice Visit NOMElo CRISOSTOMO [address] [place] [address] Wendie Aldridge PA [address] [place], [place] [address] documented as of this encounter Procedures Procedure NamePriorityDate/TimeAssociated DiagnosisCommentsALL TYPE AND SCREEN Cyhixnq3907/22/2025 9:51 AM EDT documented in this encounter Results * ALL TYPE AND SCREEN (07/22/2025 9:51 AM EDT)ComponentValueRef RangeTest Method Analysis TimePerformed AtPathologist SignatureBLOOD TYPEA NegativeTBHANTIBODY SCREENNEGATIVETBHSpecimen (Source)Anatomical Location / LateralityCollection Method / VolumeCollection TimeReceived Time07/22/2025 9:51 AM EDT1 9:52 AM EDT Narrative [facility] - 07/22/2025 10:47 AM EDT [facility] , ?? Authorizing ProviderResult TypeResult StatusCorey Bari DOCLINISYNCFinal Result Performing OrganizationAddressCity/State/ZIP CodePhone Number [facility] documented in this encounter Visit Diagnoses Not on filedocumented in this encounter Care Teams Team MemberRelationshipSpecialtyStart DateEnd Date Elva Traore MD [address] [place] [address] PCP - External PCPFamily Medicine03/01/23documented as of this encounter
--- OUTSIDE RECORDS SUMMARY | 2025-07-28 10:54 | XMS_ITS | Clinical Summary ---
Author Organization [facility] Address [address], [address] [place] [address] Care Team Providers Care Treasury Accountant Name Role Phone Larry Heart MD Primary Care Provider Gregorio mcduffie Allergies No known active allergies Medications MedicationSigDispense QuantityRefillsLast FilledStart DateEnd DateStatus metroNIDAZOLE (FLAGYL) 500 MG tablet Indications:BV (bacterial vaginosis)Take 1 tablet by mouth 2 times daily Take with Food. Do NOT drink alcohol. 14 tablet 1Active Active Problems ProblemNoted DateDiagnosed YnszYxigyviqcvaq26/24/2016Oral contraceptive use 10/15/2015 Resolved Problems ProblemNoted DateDiagnosed DateResolved DateAcute gonococcal pharyngitis Swelling of zndtya68Well adult exam Dermatitis due to unknown cause Immunizations ImmunizationAdministration DatesNext TklJJrH9811/18/1999,10/24/1999,02/05/1999, 1998,1998DTaP ikgyoce0611/18/1999,10/24/1999,02/05/1999,1998, 1998DTaP, INFANRIX, (age 6w-6y), IM, 0.5mL09/05/2017,11/18/2003HPV Quadrivalent (Gardasil)12/29/2009,08/30/2009,06/30/2009HPV, GARDASIL 9, (age 9y- 45y), IM, 0.5mL12/29/2009,08/30/2009,06/30/2009Hep B, ENGERIX-B, RECOMBIVAX-HB, (age - 19y), IM, 0.5mL02/03/1999,1998,1998Hep B/Hib (Comvax) 1998,1998Hepatitis B (Engerix-B)02/03/1999,1998,1998Hib PRP-OMP, PEDVAXHIB, (age 2m-6y, Adlt Risk), IM, 0.5mL02/05/1999,1998, 1998Hib PRP-T, ACTHIB (age 2m-5y, Adlt Risk), HIBERIX (age 6w-4y, Adlt Risk), IM, 0.5mL10/24/1999Hib ymoxvcc9310/24/1999,02/05/1999Influenza Vaccine, unspecified lwxrpixiobo29/09/2009,10/05/2003Influenza Whole08/31/2003MMR, PRIORIX, M-M-R II, (age 12m+), SC, 0.5mL11/18/2003,04/26/1999Meningococcal ACWY, MENACTRA (MenACWY-D), (age 9m-55y), IM, 0.5mL05/01/2016,03/05/2011Meningococcal ACWY, MENVEO (MenACWY-CRM), (age 2m-55y), IM, 0.5mL05/01/2016Polio OPV04/26/1999 ,1998Poliovirus, IPOL, (age 6w+), SC/IM, 0.5mL11/18/2003,04/26/1999, 1998,1998TDaP, ADACEL (age 10y-64y), BOOSTRIX (age 10y+), IM, 0.5mL 05/28/2011Varicella, VARIVAX, (age 12m+), MD, 0.5mL04/26/1999 Family History Medical HistoryRelationNameCommentsNo Known ProblemsFatherHigh Blood Pressure Maternal GrandfatherOtherMaternal Grandfatherliver diseaseNo Known Problems MotherDiabetesPaternal UncleRelationNameStatusCommentsFatherAliveMaternal GrandfatherDeceasedMotherAlivePaternal Uncle Social History Tobacco UseTypesPacks/DayYears UsedDateSmoking Tobacco: NeverSmokeless Tobacco: NeverAlcohol UseStandard Drinks/WeekCommentsNo0 (1 standard drink = 0.6 oz pure alcohol)PHQ-2AnswerDate RecordedPHQ-2 Gpsuc018CommentsNoSex and Gender InformationValueDate RecordedSex Assigned at BirthNot on fileLegal Sex Vjjyrj2910/02/2015 1:33 PM ESTGender IdentityNot on fileSexual OrientationNot on file Last Filed Vital Signs Vital SignReadingTime TakenCommentsBlood Agoywosb497/8004 6:05 PM EDT Exauk3206/13/2021 6:05 PM JRYUazmmkeqdtl98.7 ??C (98.1 ??F)01/02/2021 6:05 PM EDTRespiratory Wxum261901/02/2021 6:05 PM EDTOxygen Olmsvgkdqk33%09/28/2019 12:04 PM ESTInhaled Oxygen Concentration--Jxddpj22.6 kg (138 lb)01/02/2021 6:05 PM EDT Yneaut362.5 cm (5' 2 )01/02/2021 6:05 PM EDTBody Mass Index25.24001/02/2021 6:05 PM EDT Plan of Treatment Not on file Insurance Care Teams Team MemberRelationshipSpecialtyStart DateEnd Date Larry Heart MD PCP - GeneralFamily Iqlompct42/24/16
[2025-07-28] MEDS: KETOROLAC TROMETHAMINE 30 MG/ML VIAL IM (11:38)
--- NOTE | 2025-07-28 11:38 | ED_ITS ---
HPI - Abdominal Pain General Chief Complaint: Abdominal Pain Stated Complaint: POST OP PAINS Time Seen by Provider: 07/28/25 11:05 Source: patient Mode of arrival: walk-in History of Present Illness HPI narrative: The patient presented to us almost 4 days after she had a D&C done, she mentioned that she has been having some generalized body ache including her neck and back there is no nausea and no vomiting and no decrease in p.o. intake or change in bowel movement Patient is not having any significant bleeding but she is having a lot of cramping that sometimes radiate to her groin No burning with urination or any other urinary symptoms The patient is only taking Tylenol for pain Related Data Previous Rx's ?Medication ?Instructions ?Recorded doxycycline hyclate 100 mg capsule 100 mg PO BID 7 day s #14 caps 07/25/25 ibuprofen 600 mg tablet 600 mg PO Q8H PRN pain #20 t abs 07/28/25 Allergies Allergy/AdvReac Type Severity Reaction Status Date / Time No Known Drug Allergies Allergy Verified 07/25/25 07:02 Review of Systems ROS Status of ROS 10 or more systems reviewed and unremark able except as noted in history and below [facility] Medical History (Updated 07/28/25 @ 12:50 by Rae Posadas MD) Kidney stones ?N20.0 - Calculus of kidney (ICD-10) Missed ab ?O02.1 - Missed (ICD-10) Surgical History (Updated 07/22/25 @ 09:24 by Winnie Frost RN) H/O wisdom tooth extraction ?K08.409 - Partial loss of teeth, unspecified cause, unspecified class (ICD- 10) History of lithotripsy ?Z98.890 - Other specified postprocedural states (ICD-10) Family History (Updated 07/25/25 @ 07:05 by Anabell Anand) Other Family history of cancer Family history of diabetes mellitus Family history of hypertension Family history of stroke Social History (Updated 07/25/25 @ 07:05 by Anabell Anand) Within the past year, how often did you have a drink containing alcohol: monthly or less Smoking status: Never smoker Non-prescribed substance use: cannabis (any form) Non-prescribed substance use details: stopped 1 month ago Previous occupational history: unemployed Highest level of school completed/degree received: Bachelor's degree Little interest or pleasure in doing things: not at all Feeling down, depressed, or hopeless: not at all Exam Narrative Exam Narrative: Nurses notes and vital signs reviewed and patient is not hypoxic. General: Well-appearing and in no apparent distress. Skin: Warm, dry, no pallor noted. No rash. Head: Normocephalic, atraumatic. Neck: Supple, non-tender. Eye: Pupils are equal, round and EOMI. No scleral icterus. Ears, Nose, Mouth, and Throat: TM are clear, no nasal mucosal hypertrophy. Oral mucosa is moist, no posterior oropharynx erythema, uvula is mid-line Cardiovascular: Regular Rate and Rhythm without murmur, gallop or rub. Respiratory: No accessory muscle use or respiratory distress. Lungs are clear to auscultation, no wheezing, rales or rhonchi Chest Wall: no tenderness Back: No midline thoracic or lumbar vertebral tenderness. No CVA tenderness Musculoskeletal: normal ROM, no calf or popliteal tenderness, no lower extremity edema/swelling GI: Abdomen is soft, non-distended. Normal bowel sounds. No masses appreciated. No tenderness to palpation. No rebound, guarding, or rigidity noted. Neurological: A&O x4. No cranial nerve dysfunction observed. No truncal ataxia. Moves all extremities. Sensation intact. Psychiatric: Cooperative and interactive. Normal mood and affect. Constitutional Vital Signs, click to edit/add: Last Vital Signs Temp 98.0 F 07/28/25 10:52 Pulse 68 07/28/25 12:46 Resp 16 07/28/25 12:46 BP 101/60 07/28/25 12:46 Pulse Ox 98 07/28/25 12:46 O2 Del Method Room Air 07/28/25 12:46 Course Vital Signs Vital signs: Vital Signs Temperature 98.0 F 07/28/25 10:52 Pulse Rate 77 07/28/25 10:52 Respiratory Rate 16 07/28/25 10:52 Blood Pressure 121/66 07/28/25 10:52 Pulse Oximetry 100 07/28/25 10:52 Oxygen Delivery Method Room Air 07/28/25 10:52 Temperature 98.0 F 07/28/25 10:52 Pulse Rate 68 07/28/25 12:46 Respiratory Rate 16 07/28/25 12:46 Blood Pressure 101/60 07/28/25 12:46 Pulse Oximetry 98 07/28/25 12:46 Oxygen Delivery Method Room Air 07/28/25 12:46 MDM - Abdominal Pain MDM Narrative Medical decision making narrative: I could not induce the pain with examination of the neck back and abdomen and the patient presentation right now with a postop pain especially that she is not using other than Tylenol she was treated in the ER with Toradol As per Dr. Candelaria the patient does not need ultrasound she can follow-up with him next week for further evaluation meanwhile I just added hCG quantitative There is no concern right now they have any retained tissue and the patient mostly just needs more treatment and she was discharged home with ibuprofen 600 mg as needed for pain The patient to follow-up with the primary care within 2 to 3 days and to come back to the ER in case of any worsening of the current symptoms or any new symptoms or concerns Lab Data Labs: Lab Results 07/28/25 Range/Units 11:35 WBC 8.4 (4.0-11.0) 10^3/uL RBC 3.63 L (4.20-5.40) 10^6/uL Hgb 12.6 (12.0-16.0) g/dL Hct 35.4 L (36.0-48.0) % MCV 97.5 (81.0-99.0) fL MCH 34.7 H (26.7-34.0) pg MCHC 35.6 H (29.9-35.2) g/dL RDW 11.8 (11.0-15.0) % Plt Count 235 (150-450) 10^3/uL MPV 8.7 L (9.5-13.5) fL Neut % (Auto) 82.4 H (43.0-75.0) % Lymph % (Auto) 10.9 L (20.5-60.0) % [place] % (Auto) 5.9 (1.7-12.0) % Eos % (Auto) 0.2 L (0.9-7.0) % Baso % (Auto) 0.4 (0.2-2.0) % Neut # (Auto) 7.0 H (1.4-6.5) 10^3/uL Lymph # (Auto) 0.9 L (1.2-3.8) 10^3/uL [place] # (Auto) 0.5 (0.3-0.8) 10^3/uL Eos # (Auto) 0.0 (0.0-0.7) 10^3/uL Baso # (Auto) 0.0 (0.0-0.1) 10^3/uL Abs Immat Gran (auto) 0.02 (0.00-0.03) 10^3/uL Imm/Tot Granulo (auto) 0.2 (0.0-0.5) % Sodium 138 (136-145) mmol/L Potassium 3.7 (3.5-5.1) mmol/L Chloride 103 (98-107) mmol/L Carbon Dioxide 26.5 (21.0-32.0) mmol/L Anion Gap 12.2 BUN 14.0 (7.0-18.0) mg/dL Creatinine 0.62 (0.55-1.02) mg/dL Est GFR ( Amer) >60 (>=60 mL/min/1.73m^2) Est GFR (Non-Af Amer) >60 (>=60 mL/min/1.73m^2) BUN/Creatinine Ratio 22.6 Glucose 86 (74-106) mg/dL Calcium 8.7 (8.5-10.1) mg/dL Total Bilirubin 0.7 (0.2-1.0) mg/dL AST 13 L (15-37) U/L ALT 18 (14-59) U/L Alkaline Phosphatase 56 (46-116) U/L Total Protein 7.1 (6.4-8.2) g/dL Albumin 3.9 (3.4-5.0) g/dL Globulin 3.2 g/dL Albumin/Globulin Ratio 1.2 HCG, Quant 6174 mIU/mL Discharge Plan Discharge Chief Complaint: Abdominal Pain Clinical Impression: Post-op pain Patient Disposition: Home, Self-Care Time of Disposition Decision: 12:50 Condition: Good Prescriptions / Home Meds: New ibuprofen 600 mg tablet 600 mg PO Q8H PRN (Reason: pain) Qty: 20 0RF No Action doxycycline hyclate 100 mg capsule 100 mg PO BID 7 Days Qty: 14 0RF Print Language: Bulgarian Instructions: Pain Management After Surgery (DC) Referrals: Eusebio Candelaria DO [Physician, CRUSHING MACHINE OPERATOR] - 1 week Physician,Non-Staff, [Primary Care Provider] - 1 week Discharge Date/Time: 07/28/25 13:04
[2025-07-28 11:43] LABS: Hematocrit 35.4 % (36.0-48.0); Hemoglobin 12.6 g/dL (12.0-16.0); Immature Granulocytes Abs Auto 0.02 10^3/uL (0.00-0.03); Immature Granulocytes Pct Auto 0.2 % (0.0-0.5); Lymphocytes Absolute Auto 0.9 10^3/uL (1.2-3.8); Mean Corpuscular HGB Conc 35.6 g/dL (29.9-35.2); Mean Corpuscular Hemoglobin 34.7 pg (26.7-34.0); Mean Corpuscular Volume 97.5 fL (81.0-99.0); Platelet Count 235 10^3/uL (150-450); Red Blood Count 3.63 10^6/uL (4.20-5.40); White Blood Count 8.4 10^3/uL (4.0-11.0)
[2025-07-28 12:04] LABS: Alanine Aminotransferase 18 U/L (14-59); Albumin Globulin Ratio 1.2; Albumin Level 3.9 g/dL (3.4-5.0); Alkaline Phosphatase 56 U/L (46-116); Anion Gap 12.2; Aspartate Amino Transferase 13 U/L (15-37); Blood Urea Nitrogen 14.0 mg/dL (7.0-18.0); Calcium 8.7 mg/dL (8.5-10.1); Carbon Dioxide 26.5 mmol/L (21.0-32.0); Chloride 103 mmol/L (98-107); Estimated GFR (African America >60 (>=60 mL/min/1.73m^2); Estimated GFR (Non-African Ame >60 (>=60 mL/min/1.73m^2); Globulin 3.2 g/dL; Glucose 86 mg/dL (74-106); Potassium 3.7 mmol/L (3.5-5.1); Sodium 138 mmol/L (136-145); Total Protein 7.1 g/dL (6.4-8.2)
[2025-07-28 12:46] VITALS: BP 101/60; PULSE 68; O2SAT 98
== END 2025-07-28 13:04 | disposition home or self-care (01) ==
PROVIDERS: Emergency Provider Emergency Medicine
DX: G89.18 Other acute postprocedural pain (principal); Z98.890 Other specified postprocedural states
CPT/HCPCS: 36415; 80053; 84702; 85025; 96372; 99284; J1885

== ENCOUNTER 2025-08-02 11:31 | Outpatient (RCR) | payer OTHER, SELFPAY | END 2025-08-22 08:28 | disposition home or self-care (01) | LOC: LAB 11:31 | PROVIDERS: Visit Provider Physician Assistant | DX: O03.9 Complete or unspecified spontaneous abortion without complication (principal); Z51.89 Encounter for other specified aftercare | CPT/HCPCS: 36415; 84702 ==